=== PATIENT | male | born 1955 ===

== ENCOUNTER → 2019-08-15 13:55 | Outpatient (CLI) | payer BC, SELFPAY ==
--- NOTE | ~2019-08-15 | XR_ITS ---
XR chest 2V DATE: 08/15/2019 14:11 INDICATION: Congestion. Sinusitis. TECHNIQUE: PA and lateral views COMPARISON: None FINDINGS: Old posterior upper right rib healed fracture deformities are noted. There is degenerative spurring of the thoracic spine consistent with diffuse idiopathic skeletal hyperostosis. Normal heart size. There is mild aortic tortuosity. No pulmonary infiltrate or consolidation, pleural effusion or pulmonary vascular congestion or pneumo thorax is detected. No hilar or mediastinal enlargement. IMPRESSION: No active cardiopulmonary disease Reviewed, dictated and finalized at location B. [employer]
== END ==
PROVIDERS: PCP Physician Assistant; Visit Provider Physician Assistant
DX: J01.90 Acute sinusitis, unspecified (principal); R07.89 Other chest pain
CPT/HCPCS: 71046

== ENCOUNTER 2020-03-05 12:34 | Emergency (ER) | payer MEDICARE, SELFPAY ==
[2020-03-05 12:51] VITALS: BP 148/74; PULSE 85; RESP 18; TEMP 37; O2SAT 99
--- NOTE | 2020-03-05 12:57 | ED.EYEPROB ---
HPI - Eye Problem General Chief complaint: Eye Problems Stated complaint: fb in eyes Time Seen by Provider: 03/05/20 12:57 Source: patient and RN notes reviewed History of Present Illness HPI Narrative: Patient is a 65-year-old male who presents the urgent care with complaints of bilateral eye irritation. Patient has been using salve a cream on his bilateral cheeks due to machine neck gonsales . Patient states that his PCP put him on the medication and he stopped it approximately 9 to 10 days ago. Patient states the irritation started just after he stopped using the salve. Patient denies of any injury to the eyes. Denies of any change of vision. No other acute complaints. No acute distress noted. Patient read the plan of care. Related Data Home Medications Medication Instructions Recorded Confirmed aspirin 81 mg tablet,delayed 81 mg PO DAILY 07/12/19 03/05/20 release finasteride 5 mg tablet 5 mg PO DAILY 07/12/19 03/05/20 levetiracetam 500 mg tablet 1,500 mg PO DAILY tablet 09/27/19 03/05/20 finasteride mg 03/05/20 lisinopril 20 mg PO DAILY 03/05/20 03/05/20 lisinopril 20 mg PO DAILY 03/05/20 03/05/20 Allergies Allergy/AdvReac Type Severity Reaction Status Date / Time No Known Allergies Allergy Mild Verified 04/13/10 12:27 Review of Systems Review of Systems: Narrative: CONSTITUTIONAL: Denies fever, chills, or sweats. EYES: Reports of bilateral eye irritation ENT: Denies rhinorrhea, congestion, sore throat, or otalgia. CARDIOVASCULAR: Denies chest pain, palpitations, or edema. RESPIRATORY: Denies cough or dyspnea. GASTROINTESTINAL: Denies abdominal pain, nausea, vomiting, or diarrhea. GENITOURINARY: Denies dysuria or hematuria. SKIN: Denies rash or itching. MUSCULOSKELETAL: Denies back pain, joint pain, or myalgia. NEUROLOGIC: Denies headache, numbness, or weakness. All other systems reviewed are negative, except as documented in HPI. [facility] Past Medical History Medical History (Updated 03/05/20 @ 13:09 by MARY Castillo) Acute sinusitis BPH without obstruction/lower urinary tract symptoms Chest wall discomfort Enteritis Tension headache, chronic Family History Family History (Updated 12/14/18 @ 14:15 by DOCTOR UNKNOWN) Mother Family history of cardiovascular disease, Onset Age: 64 Father Family history of malignant neoplasm, Onset Age: 63 Sibling Family history of malignant neoplasm Comments At the time of my signature, I reviewed and agree with the nursing past medical, surgical, social, and family history. There is no relevant family history pertinent to the patient complaint. Exam Narrative: Exam Narrative: GENERAL: This is a well-nourished, well-developed patient, in no apparent distress. HEAD: normocephalic, atraumatic. EYES: PERRL. Sclera clear/white. Vision is grossly intact. Very mild irritation/erythema noted to bilateral lower eyelids without drainage, edema, matting EARS: External ears normal NOSE: External nose normal with no obvious nasal discharge, nares without redness, no rhinorrhea. THROAT: Mucous membranes moist NECK: Neck supple SKIN: warm, intact with no suspicious lesions or rash, good texture and turgor. NEURO: awake, alert, and oriented to person, place and time. There were no obvious focal neurologic abnormalities. EXTREMITIES: No clubbing, cyanosis, or edema. Course Vital Signs Vital signs: Vital Signs Temperature 98.6 F 03/05/20 12:51 Pulse Rate 85 03/05/20 12:51 Respiratory Rate 18 03/05/20 12:51 Blood Pressure 148/74 H 03/05/20 12:51 Pulse Oximetry 99 03/05/20 12:51 Temperature 98.6 F 03/05/20 12:51 Pulse Rate 85 03/05/20 12:51 Respiratory Rate 18 03/05/20 12:51 Blood Pressure 148/74 H 03/05/20 12:51 Pulse Oximetry 99 03/05/20 12:51 Reviewed?patient is informed that they may have pre-hypertension or hypertension based on a blood pressure reading in the department. I recomm
== END 2020-03-05 13:20 | disposition home or self-care (01) ==
PROVIDERS: Emergency Provider Nurse Practitioner Family
DX: H57.89 Other specified disorders of eye and adnexa (principal); N40.0 Benign prostatic hyperplasia without lower urinary tract symptoms
CPT/HCPCS: 99213; G0463

== ENCOUNTER 2022-07-21 12:45 | Emergency (ER) | payer MEDICARE, SELFPAY ==
[2022-07-21 12:52] VITALS: BP 171/90; PULSE 98; RESP 20; TEMP 36.7; O2SAT 99
[2022-07-21 12:58] VITALS: BP 171/90; PULSE 98; RESP 20; TEMP 36.7; O2SAT 99
--- NOTE | 2022-07-21 13:31 | ED.URI ---
HPI - URI/Sore Throat General Chief Complaint: Upper Respiratory Infection Stated Complaint: Chest Congestion Time Seen by Provider: 07/21/22 13:25 Source: patient, RN notes reviewed and old records reviewed Mode of arrival: ambulatory Limitations: no limitations History of Present Illness HPI Narrative: 67-year-old male who presents to [facility] care with complaints of feeling weakness and having lingering cough. Patient reports that 3 weeks ago he was ill for 2 weeks and last week he was better but not 'great'. He states that when he goes to the gym now he doesn't feel like he has his normal lung capacity. He reports that he continues to feel tired, has had no fever. Patient reports that he had had COVId vaccinations and 2 boosters and also flu shot and pneumonia shot. MD elicited complaint: cough and other (fatigue) Pertinent past history: sinusitis Related Data Home Medications Medication Instructions Recorded Confirmed aspirin 81 mg tablet,delayed 81 mg PO DAILY 07/12/19 03/05/20 release (Adult Low Dose Aspirin) finasteride 5 mg tablet 5 mg PO DAILY 07/12/19 03/05/20 levetiracetam 500 mg tablet 1,500 mg PO DAILY 09/27/19 03/05/20 lisinopril 20 mg tablet 20 mg PO DAILY 03/05/20 03/05/20 testosterone cypionate 200 mg/mL mg 07/21/22 intramuscular oil Allergies Allergy/AdvReac Type Severity Reaction Status Date / Time No Known Allergies Allergy Mild Verified 04/13/10 12:27 Review of Systems Review of Systems: CONSTITUTIONAL: Denies present malaise, chills, sweats, or fever. EYES: Denies visual changes, redness, or discharge. ENT: Reports no present rhinorrhea, congestion, sinus pain, otalgia and sore throat. CARDIOVASCULAR: Denies chest pain, palpitations, or edema. RESPIRATORY: Reports cough.?Reports some dyspnea with exertion GASTROINTESTINAL: Denies abdominal pain, nausea, vomiting, diarrhea SKIN: Denies rash or itching. MUSCULOSKELETAL: Denies myalgia. NEUROLOGIC: Denies headache. 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 symptoms Chest wall discomfort Enteritis GERD (gastroesophageal reflux disease) Hypertension Seizure disorder Tension headache, chronic Surgical History Surgical History (Updated 07/30/22 @ 19:17 by Meghann Ang NP) H/O shoulder surgery History of appendectomy Family History Family History Mother Family history of cardiovascular disease, Onset Age: 64 Father Family history of malignant neoplasm, Onset Age: 63 Sibling Family history of malignant neoplasm Social History Social History (Updated 07/30/22 @ 19:17 by Meghann Ang NP) Smoking status: Never smoker Alcohol intake: unknown Substance use: never Gender identity (if verbalized by the patient): Male Comments At time of signature, agree with nursing past medical, surgical, social and family history. There is no relevant family history pertinent to the presenting complaint Exam Narrative: GENERAL: Well-appearing, well-nourished, and in no acute distress. HEAD: Normocephalic EYES: PERRLA, conjunctivae clear ENT: Nares clear, turbinates edematous and erythematous, clear discharge. Mucous membranes moist. TM pearly valiente with dull light reflex bilaterally; no tragal tenderness. Oropharynx erythematous without lesions. Tonsils not enlarged and without exudate, no drooling, no hoarseness, no trismus, uvula midline. NECK: Supple. No lymphadenopathy CHEST: Clear to auscultation, breath sounds equal. No wheezing, rhonchi, rales, or stridor. No respiratory distress, speaks in full sentences.SAO2 99% on room air HEART: Regular rate and rhythm. No murmur heard. SKIN: Warm, dry, no rash. NEURO: Alert a
== END 2022-07-21 14:35 | disposition home or self-care (01) ==
PROVIDERS: Emergency Provider Registered Nurse; PCP Family Medicine
DX: R06.00 Dyspnea, unspecified (principal); N40.0 Benign prostatic hyperplasia without lower urinary tract symptoms
CPT/HCPCS: 87420; 87804; 99213; G0463

== ENCOUNTER 2022-12-28 10:24 | Emergency (ER) | payer MEDICARE, SELFPAY ==
[2022-12-28 10:28] VITALS: BP 143/79; PULSE 94; RESP 20; TEMP 36.5; O2SAT 100
--- NOTE | 2022-12-28 10:32 | ED.URI ---
HPI - URI/Sore Throat General Chief Complaint: Upper Respiratory Infection Stated Complaint: flu symptoms Time Seen by Provider: 12/28/22 10:58 Source: patient and RN notes reviewed Mode of arrival: ambulatory Limitations: no limitations History of Present Illness HPI Narrative: 67-year-old male presents with concern for feeling ill for 6 days. He reports headache, body aches, joint pain, nasal congestion. He reports nausea without vomiting. He reports some loose stools but not diarrhea. He reports he has an enlarged prostate. He reports some dysuria, suprapubic discomfort. MD elicited complaint: other (General malaise) Related Data Home Medications Medication Instructions Recorded Confirmed aspirin 81 mg tablet,delayed 81 mg PO DAILY 07/12/19 12/28/22 release (Adult Low Dose Aspirin) finasteride 5 mg tablet 5 mg PO DAILY 07/12/19 12/28/22 levetiracetam 500 mg tablet 1,500 mg PO DAILY 09/27/19 12/28/22 lisinopril 20 mg tablet 20 mg PO DAILY 03/05/20 12/28/22 Allergies Allergy/AdvReac Type Severity Reaction Status Date / Time No Known Allergies Allergy Mild Verified 12/28/22 10:33 Review of Systems Review of Systems: CONSTITUTIONAL: Denies malaise, chills, sweats EYES: Denies visual changes, redness, or discharge. ENT: Reports rhinorrhea, congestion. Denies sinus pain, otalgia and sore throat. CARDIOVASCULAR: Denies chest pain, palpitations, or edema. RESPIRATORY: Denies cough. Denies dyspnea. GASTROINTESTINAL: Reports suprapubic pain, nausea. Denies vomiting, diarrhea SKIN: Denies rash or itching. MUSCULOSKELETAL: Reports myalgia. NEUROLOGIC: Reports headache. 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 symptoms Chest wall discomfort Enteritis GERD (gastroesophageal reflux disease) Hypertension Seizure disorder Tension headache, chronic Surgical History Surgical History (Updated 07/30/22 @ 19:17 by Meghann Ang NP) H/O shoulder surgery History of appendectomy Family History Family History Mother Family history of cardiovascular disease, Onset Age: 64 Father Family history of malignant neoplasm, Onset Age: 63 Sibling Family history of malignant neoplasm Social History Social History (Updated 07/30/22 @ 19:17 by Meghann Ang NP) Smoking status: Never smoker Alcohol intake: unknown Substance use: never Gender identity (if verbalized by the patient): Male Comments At time of signature, agree with nursing past medical, surgical, social and family history. There is no relevant family history pertinent to the presenting complaint Exam Narrative: GENERAL: Well-appearing, well-nourished, and in no acute distress. HEAD: Normocephalic EYES: PERRLA, conjunctivae clear ENT: Nares clear, clear discharge. Mucous membranes moist. TM pearly valiente with sharp light reflex bilaterally; no tragal tenderness. Oropharynx not erythematous without lesions. Tonsils not enlarged and without exudate, no drooling, no hoarseness, no trismus, uvula midline. NECK: Supple. No lymphadenopathy CHEST: Clear to auscultation, breath sounds equal. No wheezing, rhonchi, rales, or stridor. No respiratory distress, speaks in full sentences. ABD: Mild suprapubic discomfort HEART: Regular rate and rhythm. No murmur heard. SKIN: Warm, dry, no rash. NEURO: Alert and oriented x3. PSYCH: Normal mood and affect Course Course Emergency Course: Discussed with patient his negative COVID and flu test. Discussed that due to his symptoms I cannot rule out prostatitis, he does have a mild hematuria. I will treat the patient prophylactically for prostatitis and instructed follow-up with his primary care provider. Patient is aware
[2022-12-28 10:35] VITALS: BP 143/79; PULSE 94; RESP 20; TEMP 36.5; O2SAT 100
== END 2022-12-28 11:20 | disposition home or self-care (01) ==
PROVIDERS: Emergency Provider Nurse Practitioner; PCP Family Medicine
DX: R10.30 Lower abdominal pain, unspecified (principal); R69 Illness, unspecified; Z20.822 Contact with and (suspected) exposure to COVID-19; N40.0 Benign prostatic hyperplasia without lower urinary tract symptoms; K21.9 Gastro-esophageal reflux disease without esophagitis; I10 Essential (primary) hypertension; G40.909 Epilepsy, unspecified, not intractable, without status epilepticus; Z79.82 Long term (current) use of aspirin
CPT/HCPCS: 81003; 87426; 99213; C9803; G0463

== ENCOUNTER 2024-05-05 14:08 | Emergency (ER) | payer MEDICARE, SELFPAY ==
[2024-05-05 14:29] VITALS: BP 154/77; PULSE 72; RESP 18; TEMP 36.6; O2SAT 99
--- NOTE | 2024-05-05 15:05 | ED.URI ---
HPI - URI/Sore Throat General Chief Complaint: Upper Respiratory Infection Stated Complaint: Sore Throat Time Seen by Provider: 05/05/24 14:48 Source: patient and RN notes reviewed Mode of arrival: ambulatory Limitations: no limitations History of Present Illness HPI Narrative: Patient presents today with a 3 week history of a sinus discomfort, sore throat, headache, fatigue. Denies cough, shortness of breath, fever. Patient was seen on 04/24/2024 and prescribed a course of Augmentin. States he finished this but continues to have persistent symptoms. He also takes Tylenol and uses Flonase which he does find helpful. He has tried to follow-up with his PCP but has been unable to make an appointment. Related Data Home Medications Medication Instructions Recorded Confirmed aspirin 81 mg tablet,delayed 81 mg PO DAILY 07/12/19 05/05/24 release (Adult Low Dose Aspirin) finasteride 5 mg tablet 5 mg PO DAILY 07/12/19 05/05/24 levetiracetam 500 mg tablet 1,500 mg PO DAILY 09/27/19 05/05/24 lisinopril 20 mg tablet 20 mg PO DAILY 03/05/20 05/05/24 Allergies Allergy/AdvReac Type Severity Reaction Status Date / Time No Known Allergies Allergy Mild Verified 05/05/24 14:14 Review of Systems Review of Systems: CONSTITUTIONAL: Denies body aches, fever, chills, or sweats.+ fatigue EYES: Denies visual changes, redness, or discharge. ENT: Denies rhinorrhea, congestion,or otalgia.+ sore throat, sinus pain CARDIOVASCULAR: Denies chest pain, palpitations, or edema. RESPIRATORY: Denies cough or dyspnea. GASTROINTESTINAL: Denies abdominal pain, nausea, vomiting, or diarrhea. GENITOURINARY: Denies dysuria or hematuria. SKIN: Denies rash, itching, or wounds. MUSCULOSKELETAL: Denies back pain, joint pain, or myalgia. NEUROLOGIC: Denies numbness, tingling, or weakness.+ headache PSYCH: Denies depression or anxiety. [facility] Past Medical History Medical History Acute sinusitis BPH without obstruction/lower urinary tract symptoms Chest wall discomfort Enteritis GERD (gastroesophageal reflux disease) Hypertension Seizure disorder Tension headache, chronic Surgical History Surgical History H/O shoulder surgery History of appendectomy Family History Family History Mother Family history of cardiovascular disease, Onset Age: 64 Father Family history of malignant neoplasm, Onset Age: 63 Sibling Family history of malignant neoplasm Social History Social History Smoking status: Never smoker Alcohol intake: unknown Substance use: never Gender identity (if verbalized by the patient): Male Comments At time of signature, I have reviewed and agree with nursing past medical, surgical, social and family history unless otherwise noted. Please see nursing chart for further information. There is no relevant family history pertinent to the presenting complaint Exam Narrative: GENERAL: Well-appearing, well-nourished, and in no acute distress. HEAD: Normocephalic, atraumatic. EYES: EOMI. No redness or drainage. Conjunctivae normal. ENT: Mucous membranes pink and moist. Nares clear. Turbinates normal bilaterally. No frontal or maxillary sinus tenderness. No rhinorrhea. TMs normal bilaterally. Throat normal with small amount of postnasal drainage. Uvula midline. NECK: Normal AROM. Supple. No lymphadenopathy. CHEST: No respiratory distress. Clear to auscultation. HEART: Regular rate and rhythm. No murmur appreciated. EXTREMITIES: Normal range of motion. No edema. SKIN: Warm, dry, no rash. Capillary refill normal. Normal skin turgor. NEURO: No focal deficits. Alert and oriented x3. Gait steady. PSYCH: Normal affect. No signs of depression or anxiety
== END 2024-05-05 15:10 | disposition home or self-care (01) ==
PROVIDERS: Emergency Provider Nurse Practitioner
DX: R09.82 Postnasal drip (principal); R51.9 Headache, unspecified; N40.1 Benign prostatic hyperplasia with lower urinary tract symptoms; K21.9 Gastro-esophageal reflux disease without esophagitis; I10 Essential (primary) hypertension; G40.909 Epilepsy, unspecified, not intractable, without status epilepticus; Z79.82 Long term (current) use of aspirin
CPT/HCPCS: 99213; G0463

== ENCOUNTER 2024-12-21 14:16 | Outpatient (CLI) | payer MEDICARE, SELFPAY ==
--- NOTE | ~2024-12-21 | CT_ITS ---
Non-contrast CT scan of the Abdomen and Pelvis Clinical indication: Prostatitis Technique: 2.5 mm axial scans were obtained through the abdomen and pelvis without intravenous or or al contrast. Dose reduction technique was used on this scan by utilizing automated exposure control a nd iterative reconstruction technique. The dose-length product (DLP) was 749.30 mGy-cm. Findings: Images through the lung bases reveal no abnormalities. There is no evidence of renal or ureteral calculi. The kidneys and the ureters are nondilated. Diffuse hepatic steatosis noted. The spleen, pancreas, gallbladder, and adrenals appear normal. There are atherosclerotic calcifications of the aorta. . There is no evidence of bowel obstruction. Images through the pelvis were performed. There is no evidence of ascites or lymphadenopathy. Urinary bladder unremarkable. Prostate gland and seminal vesicles are unremarkable. Bilateral L5 pars interarticularis defects are present, with minimal grade 1 anterolisthesis of L5 ov er S1. Impression: No abnormality of the prostate gland identified. Diffuse hepatic steatosis. Reviewed, dictated and finalized at [facility]. Impression: No abnormality of the prostate gland identified. Diffuse hepatic steatosis.
--- OUTSIDE RECORDS SUMMARY | 2024-12-21 14:23 | XMS_ITS | Encounter Summary ---
Author Organization [facility] Home Care Servic es Address [address] [place] [address] Phone Care Team Providers Care Information Writer Name Role Phone Brie Beach MD Primary Care Provider + Cheyenne Burk Unavailable [phone] Jermaine Cormier MD Unavailable [phone] Zeke Steve NP Unavailable [phone] Eladio Villasenor MD Unavailable [phone] Sumit Butt MD Unavailable [phone] Jacek Madrigal MD Primary Care Provider Felicity Parmar MD Primary Care Provide r Encounter Details Date Type Department Care Team (Late st Contact Info) Description 04/22/2023 Telephone [facility] Home Care Services [address] [place] [address] Altagracia Owens RN Social History Tobacco Use Types Packs/Day Years Used Date Smoking Tobacco: Never Smokeless Tobacco: Never AUDIT-C Answer Date Recorded Q1: How often do you have a drink containing alcohol? Never 04/19/2023 Q2: How many drinks containi ng alcohol do you have on a typical day when you are drinking? Patient does not drink Frequency of Binge Drinking Not on file 04/09 Personal Safety Answer Date Recorded Have you ever been in or are you currently in a harmful physical or emotional relationship or is someone making you feel afraid or unsafe? Denies 04/19/2023 Sex and Gender Information Value Date Recorded Sex Assigned at Not on file Legal Sex Male 7:20 PM [employer] Gender Identity Not on file Sexual Orientation Not on file documented as of this encounter Plan of Treatment Not on file documented as of this encounter Visit Diagnoses Not on filedocumented in this encounter Additional Health Concerns Infection Onset Date Last Indicated Resolved Time COVID: Suspected 04/25/2024 04/25/2024 04/25/2024 1:24 PM CDT COVID: Suspected 11/17/2024 11/17/2024 11/17/2024 9:01 PM CDT documented as of this encounter Care Teams Information Writer Relationship Specialty Start Date End Date Brie Beach MD [address] [place] [address] [address] [place] [address] PCP - General Family Medicine 10/17/20 03/22/24 Jacek Madrigal MD [address] [facility] [address] [place] [address] PCP - General Family Medicine 03/23/24 11/16/24 Felicity Parmar MD [address] [place] [address] [address] [place] [address] PCP - General Family Medicine 11/17/24 Cheyenne Burk PA [address] [place] [address] [address] [place] [address] Orthopedic Surgery 04/19/23 Jermaine Cormier MD [address] [place] [address] [address] [facility] [address] [place] [address] Surgeon Orthopedic Surgery 04/21/23 Zeke Steve NP [address] [place] [address] [address] [place] [address] Nurse Practitioner Nurse Practitioner 04/22/23 Eladio Villasenor MD [address] [place] [address] [address] [place] [address] Consulting Physician Neurology 03/23/24 Sumit Butt MD [address] [facility] [address] [place] [address] Consulting Physician Urology 03/23/24 documented as of this encounter
--- OUTSIDE RECORDS SUMMARY | 2024-12-21 14:23 | XMS_ITS | Clinical Summary ---
Author Organization [facility] Medical Office Building [address] Address [address] [place] [address] Care Team Providers Care Clinical Dietitian Name Role Phone Cheyenne Burk Unavailable Jermaine Cormier MD Unavailable [phone] Zeke Steve NP Unavailable [phone] Eladio Villasenor MD Unavailable [phone] Sumit Butt MD Unavailable [phone] Felicity Parmar MD Primary Care Provide r Allergies Active Allergy Reactions Criticality Noted Date Comments Ciprofloxacin Swelling,Dizziness,Nausea & Vomiting High 04/13/2023 Medications finasteride (PROSCAR) 5 mg tablet Take 1 tablet (5 mg total) by mouth daily 1 Active aspirin 81 mg enteric coated tablet Take 1 tablet (81 mg total) by mouth daily Active cyclobenzaprine (FLEXERIL) 10 mg tablet Take 1 tablet (10 mg total) by mouth 3 (three) times a day as needed for muscle spasms Active albuterol HFA (PROVENTIL HFA,VENTOLIN HFA,PROAIR HFA) 90 mcg/actuation inhaler Inhale 2 puffs every 6 (six) hours as needed for wheezing 4 Active levETIRAcetam (KEPPRA) 500 mg tabletIndications :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) TAKE 1.5 TABLETS (750 MG TOTAL) BY MOUTH 2 (TWO) TIMES A DAY 270 tablet 3 4 Active lisinopriL (PRINIVIL,ZESTRIL ) 40 mg tabletIndications :Essential hypertension Take 1 tablet (40 mg total) by mouth daily 90 tablet 1 5 11/18/19 26 Active amitriptyline (ELAVIL) 10 mg tabletIndications :Other insomnia Take 1 tablet (10 mg total) by mouth nightly 90 tablet 1 5 Active Active Problems Problem Noted Date Diagnosed Date Sore throat 11/17/2024 Assessment & Plan (11/17/2024 11:45 AM CDT): New concern Not at goal Likely viral pharyngitis Will do a throat culture and pcr for covid flu and rsv No signs of bacterial infection Continue supportive care including antihistamines, decongestants, Mucinex and Tylenol and Ibuprofen for pain. F/u pending above results Fatigue 11/17/2024 Assessment & Plan (11/17/2024 11:47 AM CDT): New concern Likely a viral syndrome Cbc b12 iron panel ferritin esr crp tsh today See sore throat for a/p as well F/u at next appt Encounter to establish care 11/16/2024 Assessment & Plan (11/16/2024 12:48 PM CDT): Medical history reviewed and discussed S/P arthroscopy of right shoulder 09/26/2024 Assessment & Plan (09/26/2024 3:07 PM VP INFORMAT[facility]): - s/p right sholder arthroscopy 04/2023 for the following Complete tear of right rotator cuff, unspecified whether traumatic Arthritis of right acromioclavicular joint Biceps tendinitis on right Impingement syndrome of right shoulder Preventative health care 09/26/2024 Assessment & Plan (09/26/2024 3:13 PM VP INFORMATICS): - New or chronic worsening conditions: no significant acute issues on this visit - Mental health: no significant psychiatric/mental health conditions affecting her day to day functioning - Dental health: Recommend regular dental care and cleaning. Discussed importance of regular tooth brushing, flossing, and dental visits. - Nutrition: Recommend moderation in sodium/caffeine intake, saturated fat and cholesterol, caloric balance, sufficient intake of fresh fruits, vegetables - Exercise: Recommend to exercise at least 30 minutes moderate to vigorous exercise most days of the week. (minimum 150 minutes weekly) - Immunizations: Age and sex appropriate immunizations reviewed and offered - Prostate cancer screening: Up to date - Colon cancer screening: Up to date - Lung cancer screening: not indicated No results found for: PSA Benign prostatic hyperplasia with lower urinary tract symptoms 03/23/2024 Overview (04/25/2024): Managed by Urology - [facility] Dr. Butt Assessment & Plan (11/17/2024 11:45 AM CDT): Continue following with urology Assessment & Plan (09/26/2024 3:06 PM [facility]): - chronic condition, stable status - symptoms were trouble urinating, straining - follows with Urology - Dr. Butt at [facility], followed annually - currently on Finasteride 5 mg daily - in past was on Flomax caused retrograde ejaculation which was painful to him - PSA being done by his urologist annually - continue current management per Urology Assessment & Plan (03/23/2024 2:40 PM CDT): - chronic condition, stable status - symptoms were trouble urinating, straining - follows with Urology - Dr. Butt at [facility], followed annually - currently on Finasteride 5 mg daily - in past was on Flomax caused retrograde ejaculation which was painful to him - continue current management per Urology - PSA being done by his urologist annually Class 1 obesity due to exces s calories with serious comorbidity and body mass index (BMI) of 33.0 to 33.9 in adult 03/23/2024 Assessment & Plan (11/17/2024 11:48 AM CDT): He was counseled on the importance of maintaining a healthy weight and the risks of obesity. Weight loss recommended. Encourage 150min/ week of exercise Encourage 1500 calories in a day for weight loss Assessment & Plan (09/26/2024 2:57 PM VP INFORMAT[facility]): Wt Readings from Last 3 Encounters: 09/26/24 100.7 kg (222 lb) 04/25/24 99.3 kg (218 lb 14.4 oz) 03/23/24 99.2 kg (218 lb 9.6 oz) Body mass index is 48.03 kg/m . - chronic condition, not at goal, worse, small weight gain noted - goal BMI <30 - BMI Follow-up includes: nutrition counseling, exercise counseling and education provided - Recommend to exercise at least 30 minutes moderate to vigorous exercise most days of the week. (minimum 150 minutes weekly) - Co-morbidities - hypertension Assessment & Plan (03/23/2024 2:28 PM CDT): Wt Readings from Last 3 Encounters: 03/23/24 99.2 kg (218 lb 9.6 oz) 03/03/24 95.7 kg (211 lb) 01/04/24 98.3 kg (216 lb 12.8 oz) Body mass index is 47.29 kg/m . - chronic condition, not at goal - BMI Follow-up includes: nutrition counseling, exercise counseling and education provided - Recommend to exercise at least 30 minutes moderate to vigorous exercise most days of the week. 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 Assessment & Plan (09/26/2024 2:58 PM [facility] [employer]): - chronic condition, stable status - hx of anxiety but under good control - currently takes Amitriptyline 10 mg nightly for sleep The current medical regimen is effective; continue present plan and medications. Assessment & Plan (03/23/2024 2:33 PM CDT): - chronic condition, stable status - hx of anxiety but under good control - currently takes Amitriptyline 10 mg nightly for sleep - continue current management Nonintractable epilepsy with complex partial sei zures 11/08/2020 Overview (09/26/2024): Following with Neurology Assessment & Plan (11/17/2024 11:45 AM CDT): - chronic condition, stable status - had petitmal seizure x3-4 in 1999 and then partial onset seizure afterward - sees Dr. Villasenor (neurologist) for seizure disorder, on Levitiracetam 500 mg TID The current medical regimen is effective; continue present plan and medications. - continue current management per neurology Assessment & Plan (09/26/2024 2:57 PM VP INFORMATICS): - chronic condition, stable status - had petitmal seizure x3-4 in 1999 and then partial onset seizure afterward - sees Dr. Villasenor (neurologist) for seizure disorder, on Levitiracetam 500 mg TID The current medical regimen is effective; continue present plan and medications. - continue current management per neurology Assessment & Plan (03/24/2024 5:26 AM CDT): - chronic condition, stable status - had petitmal seizure x3-4 in 1999 and then partial onset seizure afterward - sees Dr. Villasenor (neurologist) for seizure disorder, on Levitiracetam 500 mg TID - continue current management per neurology Essential hypertension 03/11/2020 Assessment & Plan (11/17/2024 11:01 AM CDT): Blood Pressure Management BP Readings from Last 3 Encounters: 11/17/24 130/82 11/15/24 140/80 09/26/24 124/74 Chronic condition Status - is adequately controlled. Current medications are: Lisinopril 40 mg daily Patient is compliant with medications. Patient denies any side effects or adverse side effects from the medication/s. Follow a low salt diet Monitor blood pressure regularly at home The current medical regimen is effective; continue present plan and medications. The 10-year ASCVD risk score (Rohit LUNA, et al., 2019) is: 21.9% Values used to calculate the score: Age: 69 years Sex: Male Is Non- : No Diabetic: No Tobacco smoker: No Systolic Blood Pressure: 130 mmHg Is BP treated: Yes HDL Cholesterol: 37 mg/dL Total Cholesterol: 184 mg/dL Lab Results Component Value Date LDLCALC 83 09/26/2024 Lab Results Component Value Date GLUCOSE 99 09/26/2024 CALCIUM 9.5 09/26/2024 SODIUM 133 (L) 09/26/2024 POTASSIUM 4.6 09/26/2024 CO2 28 09/26/2024 CHLORIDE 96 (L) 09/26/2024 BUNSER 13 09/26/2024 CREATININE 1.22 09/26/2024 Assessment & Plan (09/26/2024 2:57 PM VP INFORMAT[facility]): Blood Pressure Management BP Readings from Last 3 Encounters: 09/26/24 124/74 04/25/24 140/80 03/23/24 120/60 Chronic condition Status - is adequately controlled. Current medications are: Lisinopril 40 mg daily Patient is compliant with medications. Patient denies any side effects or adverse side effects from the medication/s. Follow a low salt diet Monitor blood pressure regularly at home The current medical regimen is effective; continue present plan and medications. The 10-year ASCVD risk score (Rohit LUNA, et al., 2019) is: 19.2% Values used to calculate the score: Age: 69 years Sex: Male Is Non- : No Diabetic: No Tobacco smoker: No Systolic Blood Pressure: 124 mmHg Is BP treated: Yes HDL Cholesterol: 40 mg/dL Total Cholesterol: 176 mg/dL Lab Results Component Value Date LDLCALC 104 03/23/2024 Lab Results Component Value Date GLUCOSE 97 03/23/2024 CALCIUM 9.0 03/23/2024 SODIUM 132 (L) 03/23/2024 POTASSIUM 4.7 03/23/2024 CO2 26 03/23/2024 CHLORIDE 95 (L) 03/23/2024 BUNSER 13 03/23/2024 CREATININE 0.93 03/23/2024 Assessment & Plan (03/23/2024 2:18 PM CDT): Blood Pressure Management BP Readings from Last 3 Encounters: 03/23/24 120/60 03/03/24 144/87 01/04/24 112/67 Chronic condition Status - is adequately controlled. Current medications are: Lisinopril 40 mg daily Patient is compliant with medications. Patient denies any side effects or adverse side effects from the medication/s. Follow a low salt diet Monitor blood pressure regularly at home Continue current management unless change made above The ASCVD Risk score (Rohit LUNA, et al., 2019) failed to calculate for the following reasons: Cannot find a previous HDL lab Cannot find a previous total cholesterol lab No results found for: LDLCALC No results found for: GLUCOSE , CALCIUM , SODIUM , POTASSIUM , CO2 , CHLORIDE , BUNSER , CREATININE Resolved Problems Problem Noted Date Diagnosed Date Resolved Date Complete tear of right rotator cuff 04/01/2023 09/26/2024 Arthritis of right acromioclavicular joint 04/01/2023 09/26/2024 Biceps tendinitis on right 04/01/2023 0 03/24/2024 Impingement syndrome of right shoulder 04/01/2023 09/26/2024 Upper respiratory infection 02/15/2023 03/23/2024 Acute sinusitis 02/12/2023 03/23/2024 Pain of toe of left foot 01/20/2023 Pain in throat 11/04/2022 03/23/2024 Gastroenteritis 11/03/2022 03/23/2024 Pain in joint of right shoulder 11/03/2022 09/26/2024 Seizure disorder 03/11/2020 03/24/2024 Encounters Date Type Department Care Team Description 11/20/2024 Results Follow-Up [facility] Primary Care at [address] [place] [phone] Felicity Parmar MD 11/18/2024 Results Follow-Up [facility] at [address] [place] [phone] Lalita Lopez NP 11/17/2024 7:40 PM CDT - 11/17/2024 11:59 PM CDT Hospital Encounter [address] [address] Acute cough Discharge Disposition: Discharge to home or self care 11/17/2024 12:16 PM CDT - 11/17/2024 11:59 PM CDT Hospital Encounter [address] [address] Upper respiratory tract infection, unspecified type Discharge Disposition: Discharge to home or self care 11/17/2024 11:00 AM CDT Office Visit [facility] Primary Care at [address] [phone] Felicity Parmar MD Encounter to establish care (Primary Dx); Essential hypertension; Class 1 obesity due to excess calories with serious comorbidity and body mass index (BMI) of 33.0 to 33.9 in adult; Other insomnia; Primary insomnia; Acute cough; Sore throat; Benign prostatic hyperplasia with lower urinary tract symptoms, symptom details unspecified; 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); Fatigue, unspecified type 11/17/2024 Orders Only [facility] Primary Care at [address] [phone] Felicity Parmar MD Encounter for long-term (current) use of medications (Primary Dx); Fatigue, unspecified type 11/15/2024 2:45 PM CDT Office Visit [facility] at [address] [place] [phone] Tayla Mcpherson NP Upper respiratory tract infection, unspecified type (Primary Dx); Sore throat 11/15/2024 Nurse Triage [facility] Primary Care at [address] [phone] Jacek Madrigal MD 09/27/2024 Results Follow-Up [facility] Primary Care at [address] [place] [phone] Jacek Madrigal MD 09/26/2024 3:35 PM [facility] Lab [address] [phone] Morbid obesity with BMI of 45.0-49.9, adult (HCC); Essential hypertension 09/26/2024 3:00 PM [facility] Office Visit [facility] Primary Care at [address] [place] [phone] Jacek Madrigal MD Preventative health care (Primary Dx); Essential hypertension; 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); Morbid obesity with BMI of 45.0-49.9, adult (HCC); Bilateral hearing loss, unspecified hearing loss type; Primary insomnia; Benign prostatic hyperplasia with lower urinary tract symptoms, symptom details unspecified; S/P arthroscopy of right shoulder from Last 3 Months Immunizations Immunization Administration Dates Next Due DTaP 10/02/2015 Influenza, Quad, Adjuvantate d, Intramuscular 04/16/2021 Influenza, Quadrivalent, Hig h Dose, Preservative Free, Intrr 06/08/2023,05/06/2022 Influenza, Quadrivalent, Spl it, Intramuscular 04/23/2021 Influenza, Quadrivalent, Spl it, Preservative Free, Intramuscular 05/21/2017,06/08/2016 Influenza, Unspecified 05/28/2024(Deferr ed: Patient Refused),03/23/2024(Deferred: Patient Refused),06/08/2023,05/06/2022, 021 Moderna SARS-CoV-2 Monovalen t Vaccination (12+ YRS) 11/24/2021 Moderna Sars-cov-2 Bivalent Vaccine 50 Mcg/0.5 mL (12+ YRS)-Blue/Calle 06/11/2022 Pfizer SARS-CoV-2 Monovalent Vaccination (12+ Yrs) PURPLE 11/24/2021 Pneumococcal Conjugate Pcv20 02/27/2022 Pneumococcal Polysaccharide PPV23 10/02/2020 Tdap 10/02/2015 ZOSTER Recombinant 05/02/2023,02/03/2023 Surgical History Surgery Date Site/Laterality Comments [place] APPENDECTOMY Appendectomy - (Added by TW Conv) SHOULDER ARTHROSCOPY W/ ROTA TOR CUFF REPAIR Left Medical History Medical History Date Comments Personal history of other di seases of male genital organs History of prostatitis - (Ad ded by TW Conv) Personal history of other di seases of the circulatory system History of hypertension - (A dded by TW Conv) Anxiety disorder Anxiety - (Adde d by TW Conv) Personal history of other me ntal and behavioral disorders History of depression - (Add ed by TW Conv) Personal history of other di seases of male genital organs History of epididymitis - (A dded by TW Conv) Hypertension Seizures (HCC) Family History Medical History Relation Name Comments Lung cancer Father Heart disease Mother Relation Name Status Comments Father Mother Social History Tobacco Use Types Packs/Day Years Used Date Smoking Tobacco: Never Passive Smoke Exposure: Never Smokeless Tobacco: Never Tobacco Cessation:Counseling Given: Not Answered OASIS D0700: Social Isolation Answer Da te Recorded Frequency of experiencing loneliness or isolatio n Never 05/25/2023 OASIS A1250: Transportation Answer Date Recorded Lack of Transportation (Medical) No 05/25/2023 Lack of Transportation (Non-Medical) No 05/25/2023 Patient Unable or Declines to Respond No 05/25/2023 OASIS B1300: Health Literacy Answer Josep e Recorded Frequency of needing help to read materials from doctor or pharmacy Never 05/25/2023 AUDIT-C Answer Date Recorded Q1: How often do you have a drink containing alcohol? Never 09/26/2024 Q2: How many drinks containi ng alcohol do you have on a typical day when you are drinking? Patient does not drink Q3: How often do you have si x or more drinks on one occasion? Never 09/26/2024 PHQ-2 Answer Date Recorded PHQ-2 Total Score (If total score is 3 or more points, staff should administer the PHQ-9) 0 11/17/2024 Personal Safety Answer Date Recorded Have you ever been in or are you currently in a harmful physical or emotional relationship or is someone making you feel afraid or unsafe? Denies 04/19/2023 Sex and Gender Information Value Date Recorded Sex Assigned at Not on file Legal Sex Male 7:20 PM [facility] Gender Identity Not on file Sexual Orientation Not on file Obstetrics History Last Filed Vital Signs Vital Sign Reading Time Taken Comments Blood Pressure 130/82 11/17/2024 10:45 AM CDT Pulse 85 11/17/2024 10:45 AM CDT Temperature 36.8 C (98.3 F) 11/17/2024 10:45 AM CDT Respiratory Rate 18 11/17/2024 10:45 AM CDT Oxygen Saturation 96% 11/17/2024 10:45 AM CDT Inhaled Oxygen Concentration - - Weight 101.8 kg (224 lb 8 oz) 11/17/2024 10:45 A M CDT Height 175.3 cm (5' 9 ) 11/17/2024 10:45 AM CDT Body Mass Index 33.15 11/17/2024 10:45 AM CDT Plan of Treatment Health Maintenance Due Date Last Done Comments Prostate Cancer Screening-PSA 1955 Colon Cancer Screening-Colonoscopy 12/24/2024 12/24/2014 Influenza Vaccine (Season Ended) 2025 06/08/2023, 06/08/2023, 05/06/2022, Additional history exists Well Visit 65+ 09/26/2025 09/26/2024 DTaP/Tdap/Td Vaccine (3 - Td or Tdap) 10/02/2025 10/02/2015, 10/02/2015 Covid-19 Vaccine ( season) 2025 06/11/2022, 06/11/2022, 11/24/2021, Additional history exists Postponed from 04/09/2024 (Patient declined, but will receive in the future) Depression Screening 11/17/2025 11/17/2024, 09/26/2024, 04/25/2024, Additional history exists Fall Risk Assessment 11/17/2025 11/17/2024, 09/26/2024, 04/25/2024, Additional history exists Colon Cancer Screening-CT Colonography Discontinued 12/24/2014 Colon Cancer Screening-DNA Stool Discontinued 12/24/2014 Colon Cancer Screening-FIT Discontinued 12/24/2014 Colon Cancer Screening-Sigmoidoscopy Discontinued 12/24/2014 Pneumococcal vaccine 65+ Completed 02/27/2022, 09/10 Zoster Vaccine Completed 05/02/2023, 02/03/2023 Hepatitis B Screening Completed 03/23/2024 Hepatitis C Screening Completed 03/23/2024 Medical Devices Implanted Type Area Grip Boss Device Identifier Shelf Expiration Date Model / Serial / Lot [employer] [place] Suture 3.9mm Swivelock Biocomposite 17.9mm Ar-[id number] - [id number] Implanted:Qty: 1 on 04/19/2023 by Jermaine Cormier MD at [facility] Right: Shoulder [employer] 11/06/2026 AR-2326BC C / / [id number] [employer] Swivelock C 4.75mm 19.1mm Close Eyelet Tape Loop Vent [place] Ar-[id number] - [id number] Implanted:Qty: 1 on 04/19/2023 by Jermaine Cormier MD at [facility] Right: Shoulder [employer] [id number] 01/06/[address] AR-[address] / / [id number] [employer] Swivelock C 4.75mm 19.1mm Closed Eyelet Vent [place] Suture Ar-[id number] - [id number] Implanted:Qty: 1 on 04/19/2023 by Jermaine Cormier MD at [facility] Right: Shoulder [employer] [id number] 02/05/2027 AR-2324BC CTT / / [id number] [employer] Swivelock C 4.75mm 19.1mm Closed Eyelet Vent [place] Suture Ar-2324bcc - [id number] Implanted:Qty: 1 on 04/19/2023 by Jermaine Cormier MD at [facility] Right: Shoulder [employer] 01/06/2027 AR-2324BC C / / [id number] [employer] Swivelock C 4.75mm 19.1mm Closed Eyelet Vent [place] Suture Ar-2324bcc - [id number] Implanted:Qty: 1 on 04/19/2023 by Jermaine Cormier MD at [facility] Right: Shoulder [employer] 01/06/2027 AR-2324BC C / / [id number] [employer] Fiberlink Arthrex Suturetape 1.3mm Tape Suture Nonabsorbable Ar-7535 - [id number] Implanted:Qty: 1 on 04/19/2023 by Jermaine Cormier MD at [facility] Right: Shoulder [employer] 01/06/2027 [id number] / / Procedures Procedure Name Priority Date/Time Associated Diagnosis Comments XR CHEST PA LATERAL 2 VIEWS Schedule ZACHARIAH, Read ZACHARIAH (Appt Today, Awaiting Results) 11/17/2024 12:21 PM CDT Upper respiratory tract infection, unspecified type THROAT CULTURE Routine 11/17/2024 12:00 PM CDT Acute cough INFLUENZA A/B, RSV, AND COVID-19 PCR Routine 11/17/2024 12:00 PM CDT Acute cough EGFR Routine 09/26/2024 3:39 PM [facility] Essential hypertension DIFFERENTIAL AUTO Routine 09/26/2024 3:3 9 PM [facility] [employer] Essential hypertension CBC WITH AUTO DIFFERENTIAL Routine 09/26/2024 3:39 PM [facility] [employer] Essential hypertension COMPREHENSIVE METABOLIC PANEL Routine 09/26/2024 3:39 PM [facility] [employer] Essential hypertension LIPID PANEL Routine 09/26/2024 3:39 PM [facility] [employer] Morbid obesity with BMI of 45.0-49.9, adult (HCC) THYROID FUNCTION CASCADE Routine 09/26/2024 3:39 PM [facility] [employer] Morbid obesity with BMI of 45.0-49.9, adult (HCC) HEPATITIS C ANTIBODY Routine 03/23/2024 3:55 PM CDT Encounter for hepatitis C screening test for low risk patient COLONOSCOPY 12/24/2014 12:00 AM CDT from Last 3 Months or Most Recently Relevant to Health Maintenance Results * XR Chest PA Lateral 2 Views (11/17/2024 12:21 PM CDT) Anatomical Region Laterality Modality Body, Chest N/A Computed Radiogr aphy 11/17/2024 10:4 8 PM CDT Narrative 11/17/2024 10:52 PM CDT EXAM DESCRIPTION: XR CHEST PA LATERAL 2 VIEWS REASON FOR STUDY: pneumonia Pt stated they have felt weak for 1 week Hx of HTN-medicated No other chest complaints TECHNIQUE: 2 radiographic view(s) of the chest. COMPARISON: None FINDINGS: LUNGS: Minor chronic lung changes are noted. No consolidation, effusion or other acute process is seen. HEART/MEDIASTINUM: Cardiac silhouette normal in size. Mediastinal and hilar contours appear normal. LINES/TUBES: None. BONES: No acute osseous abnormality. IMPRESSION: No acute cardiopulmonary abnormality. THIS IS AN ELECTRONICALLY VERIFIED FINAL REPORT 11/17/2024 10:52 PM - Electronically signed by Wm HELLER: ARRON Report ID: [id number] Reading Location: [id number] Procedure Note Wm Claire MD - 11/18/2024 EXAM DESCRIPTION: XR CHEST PA LATERAL 2 VIEWS REASON FOR STUDY: pneumonia Pt stated they have felt weak for 1 week Hx of HTN-medicated No other chest complaints TECHNIQUE: 2 radiographic view(s) of the chest. COMPARISON: None FINDINGS: LUNGS: Minor chronic lung changes are noted. No consolidation, effusionor other acute process is seen. HEART/MEDIASTINUM: Cardiac silhouette normal in size. Mediastinal andhilar contours appear normal. LINES/TUBES: None. BONES: No acute osseous abnormality. IMPRESSION: No acute cardiopulmonary abnormality. THIS IS AN ELECTRONICALLY VERIFIED FINAL REPORT 11/17/2024 10:52 PM - Electronically signed by Wm HELLER: ARRON Report ID: [id number] Reading Location: [id number] us Tayla Mcpherson [employer] IMG XR PROCEDURES Fin al Result * Influenza A/B, RSV, and COVID-19 PCR Nasopharyngeal (11/17/2024 12:00 PM CDT) COVID-19 RNA Negative Negative Influenza A RNA Negative Negative [facility] [facility] Influ[facility] B RNA Negative Negative [facility] RSV RNA Negative Negative [facility] Comment: Interpretive data: Testing performed by [facility]. This test is performed using the [employer] Xpert Xpress CoV-2/Flu/RSV plus assay. This is a multiplex, real-time reverse transcriptase PCR assay intended for the qualitative detection of nucleic acid from SARS-CoV-2, influenza A, influenza B, and respiratory syncytial virus. This assay has been cleared by the [place] Food and Drug administration. The performance characteristics have been verified by the [facility]. Results must be considered in the clinical context, and a negative result does not rule out infection. Interpretive Data last revised 2023 Nasopharyngeal 11/17/2024 12 :00 PM CDT 11/17/2024 8:14 PM CDT Narrative [facility] 11/17/2024 9:00 PM CDT Is the Patient experiencing symptoms consistent with COVID?->Yes us Felicity Parmar MD LAB MICROBIOLOGY - [facility] [place] [id number] [address] Department [place] [address] * Throat culture Throat (11/17/2024 12:00 PM CDT) Report Final Report: No growth of pathogens. Comment:Testing performed by : [facility], [address], [place]., [address] Throat 11/17/2024 12:0 0 PM CDT 11/17/2024 9:54 PM CDT Narrative [facility] 11/18/2024 6:16 PM CDT Testing performed by [facility] ([phone]). us Felicity Parmar MD LAB MICROBIOLOGY - [facility] [place] [address] [address] Department [place] [address] * eGFR (09/26/2024 3:39 PM [facility] [employer]) eGFR 64 >=60 mL/min/1. 73 m2 Comment: Interpretive Data Reference Interval Normal >/= 90 mL/min/1.73m2 Mildly decreased* 60 - 89 mL/min/1.73m2 Mildly to moderately decreased 45 - 59 mL/min/1.73m2 Moderately to severely decreased 30 - 44 mL/min/1.73m2 Severely decreased 15 - 29 mL/min/1.73m2 Kidney Failure < 15 mL/min/1.73m2 *Relative to young adult level Estimated glomerular filtration rate is determined by the 2020 CKD-EPI equation recommended by the National Kid[employer] (A Unifying Approach to GFR Estimation: Recommendations of the NKF-ASK Task Force on Reassessing the Inclusion of Race in Diagnosing Kidney Disease, JASN 2020). The CKD-EPI equation should not be used for patients with unstable renal function and has not been validated in children and those over 70. Current interpretive data was last reviewed 2021. Blood 09/26/2024 3:39 PM [facility] 09/26/2024 3:43 PM [employer] us Jacek Madrigal MD LAB BLOOD ORDERABLES Fi nal Result [facility] ([place]) [address] [facility] Department [place] [address] * Differential, auto (09/26/2024 3:39 PM [facility] [employer]) Neutrophil abs 3.9 1.5 - 6.5 K/cumm Imm gran abs 0.0 0.0 - 0.1 K/cumm [facility] ([place]) Lymphocyte abs 2.4 0.8 - 3.3 K/cumm [facility] ([place]) Monocyte abs 0.7 0.2 - 0.8 K/cumm [facility] ([place]) Eosinophil abs 0.2 0.0 - 0.5 K/cumm [facility] ([place]) Basophil abs 0.0 0.0 - 0.1 K/cumm [facility] ([place]) Neutrophil pct 54.4 % [facility] ([place]) Comment: Interpretive Data Percent cell count reference ranges are not reported, since discordance with absolute values may lead to misinterpretation of CBC data. Current Interpretive Data was last revised on 2017. Imm gran pct 0.4 % [facility] ([place]) Comment: Interpretive Data Percent cell count reference ranges are not reported, since discordance with absolute values may lead to misinterpretation of CBC data. Current Interpretive Data was last revised on 2017. Lymphocyte pct 33.1 % [facility] ([place]) Comment: Interpretive Data Percent cell count reference ranges are not reported, since discordance with absolute values may lead to misinterpretation of CBC data. Current Interpretive Data was last revised on 2017. Monocyte pct 9.5 % [facility] ([place]) Comment: Interpretive Data Percent cell count reference ranges are not reported, since discordance with absolute values may lead to misinterpretation of CBC data. Current Interpretive Data was last revised on 2017. Eosinophil pct 2.2 % [facility] ([place]) Comment: Interpretive Data Percent cell count reference ranges are not reported, since discordance with absolute values may lead to misinterpretation of CBC data. Current Interpretive Data was last revised on 2017. Basophil pct 0.4 % [facility] ([place]) Comment: Interpretive Data Percent cell count reference ranges are not reported, since discordance with absolute values may lead to misinterpretation of CBC data. Current Interpretive Data was last revised on 2017. Blood 09/26/2024 3:39 PM [facility] 09/26/2024 3:43 PM [employer] us Jacek Madrigal MD LAB BLOOD ORDERABLES Fi nal Result PA [facility] ([place]) 1 [facility] Department [place] [address] * Thyroid Function [facility] (09/26/2024 3:39 PM [facility] [employer]) TSH 0.61 0.30 - 4.20 mcIUnit/mL Blood 09/26/2024 3:39 PM [facility] 09/26/2024 3:43 PM [facility] Jacek Madrigal MD LAB BLOOD ORDERABLES Fi nal Result Performing Organization Address [facility] Co de Phone Number [facility] ([place]) 1 [facility] Department [place] [address] * CBC with auto differential (09/26/2024 3:39 PM [facility] [employer]) Pathologist [facility] WBC 7.2 3.8 - 9.9 K/cumm Hgb 14.1 13.0 - 17.5 g/dL [facility] ([place]) Hct 41.5 38.9 - 50.3 % [facility] ([place]) Plt 208 150 - 400 K/cumm [facility] ([place]) MPV 9.3 9.1 - 12.3 fL [facility] ([place]) RBC 4.38 4.30 - 5.80 M/cumm [facility] ([place]) MCV 94.7 81.3 - 96.4 fL [facility] ([place]) MCH 32.2 27.1 - 33.3 pg [facility] ([place]) MCHC 34.0 32.3 - 35.7 g/dL [facility] ([place]) RDW CV 11.9 11.1 - 14.9 % [facility] ([place]) RDW SD 41.2 35.7 - 48.1 fL [facility] ([place]) NRBC abs 0.00 0.00 - 0.01 K/cumm [facility] ([place]) Blood 09/26/2024 3:39 PM [facility] [employer] 09/26/2024 3:43 PM [facility] [employer] us Jacek Madrigal MD LAB BLOOD ORDERABLES Fi nal Result [facility] ([place]) 1 [facility] [id number]|2024-12-15 11:22:35|2024-12-15 11:22:35|ED.GENADULT||||"HPI - General Adult General Chief complaint: Unspecified Stated complaint: requesting special enema for constipation Time Seen by Provider: 12/15/24 11:02 Source: patient Mode of arrival: ambulatory Limitations: no limitations History of Present Illness HPI narrative: This is a 89-year-old male that presents to the emergency department for constipation. Reports he does not believe he has had a bowel movement since the end of last month. He has been seeing his primary provider for this. He has tried several [id number] laxatives, stool softeners, enemas without relief. He is also taking Linzess. Denies fevers, vomiting. Related Data Home Medications Medication Instructions Recorded Confirmed Last Taken Type aspirin 81 mg tablet,delayed 81 mg PO DAILY 07/17/19 12/15/24 Unknown History release (Adult Low Dose Aspirin) multivitamin 1 tablet PO DAILY 07/17/19 12/15/24 Unknown History polyethylene glycol 3350 17 17 gm PO DAILY 07/17/19 12/15/24 Unknown History gram/dose oral powder (Miralax) triamterene 37.5 1 cap PO DAILY 07/17/19 12/15/24 Unknown History mg-hydrochlorothiazide 25 mg capsule acetaminophen 325 mg capsule 650 mg PO Q6H PRN fever or pain 09/01/21 12/15/24 Unknown History (Tylenol) amlodipine 10 mg tablet 10 mg PO DAILY 09/01/21 12/15/24 Unknown History atorvastatin 10 mg tablet (Lipitor) 10 mg PO DAILY 10/12/22 12/15/24 Unknown History diphenhydramine HCl 25 mg tablet 50 mg PO .qhs PRN allergy symptoms 10/12/22 12/15/24 Unknown History (Benadryl Allergy) Allergies Allergy/AdvReac Type Severity Reaction Status Date / Time No Known Allergies Allergy Verified 12/15/24 10:41 Review of Systems Review of Systems: CONSTITUTIONAL: Denies fever, chills, or sweats. EYES: Denies visual changes, redness, or discharge. ENT: Denies rhinorrhea, congestion, sore throat, or otalgia. CARDIOVASCULAR: Denies chest pain, palpitations, or edema. RESPIRATORY: Denies cough or dyspnea. GASTROINTESTINAL: Denies abdominal pain, nausea, vomiting, or diarrhea. GENITOURINARY: Denies dysuria or hematuria. SKIN: Denies rash or itching. MUSCULOSKELETAL: Denies back pain, joint pain, or myalgia. NEUROLOGIC: Denies headache, numbness, or weakness. PSYCHIATRIC: Denies anxiety or depression. All systems reviewed & are unremarkable except as noted in HPI and below PMFSH Past Medical History Medical History Constipation by delayed colonic transit Angioedema of lips Diabetes mellitus with neurologic complication, with long-term current use of insulin Dyspnea Presence of permanent cardiac pacemaker History of thymoma Macular degeneration Pancreatic cyst neg bx HTN (hypertension) Diabetes Surgical History Surgical History History of hemorrhoidectomy Family History Family History Sibling Patient's sister is in good health Mother Diabetes mellitus Glaucoma Father Malignant neoplasm of prostate Social History Social History Smoking status: Former smoker Smoking end date: 08/09/1961 Alcohol intake: current Alcohol use details: occasional Lack of Transportation: No Lack of Food: Never True Current Housing: I Have Housing Concerned About Future Housing: No Difficulty Paying Gas/Electric Bills: No Difficulty Paying for Meds: No Currently Unemployed: No Education: High School Diploma/GED Difficulty w/ Childcare or Family Care: No Course Course Emergency Course: Patient and family updated on workup and agree with plan of care Consultations Consultation #1: Patient's PCP called, would like patient to have soap suds enema to help relieve his constipation as they have tried numerous other medications outpatient Date: 12/15/24 Vital Signs Vital signs: Vital Signs Temperature 97.5 F L 12/15/24 10:58 Pulse Rate 76 12/15/24 10:58 Respiratory Rate 18 12/15/24 10:58 Blood Pressure 150/58 H 12/15/24 10:58 Pulse Oximetry 100 12/15/24 10:58 Oxygen Delivery Room Air 12/15/24 10:58 Temperature 97.9 F 12/15/24 12:17 Pulse Rate 81 12/15/24 13:17 Respiratory Rate 16 12/15/24 13:17 Blood Pressure 164/68 H 12/15/24 13:17 Pulse Oximetry 99 12/15/24 13:17 Oxygen Delivery Room Air 12/15/24 10:58 Medical Decision Making MDM Narrative Medical decision making narrative: Patient presents to the emergency department for constipation. He is afebrile and nontoxic appearing. His vitals are stable. Cbc without leukocytosis. Metabolic panel without concerning findings. KUB shows nonspecific dilation, possible obstruction. Patient was not able to urinate. He did not feel like even needed to. Bladder scan showed he had over 800 cc in his bladder. Sanders catheter was placed. CT obtained for further evaluation. No evidence of obstruction. He has some pancreatic cysts which were seen on previous imaging. Enlarged prostate. Likely source of patient's difficulty urinating. He had a soapsuds enema with moderate output. Patient and family were updated on his workup and agree with plan of care. Instructed to have further follow-up with his primary provider and will be given follow-up with urology. They were given warnings to return to the ER Differential Diagnosis Differential Diagnosis: Constipation, dehydration, bowel obstruction, urinary retention, UTI, prostatomegaly Vital Signs Vital Signs: Vital Signs Temperature 97.5 F L 12/15/24 10:58 Pulse Rate 76 12/15/24 10:58 Respiratory Rate 18 12/15/24 10:58 Blood Pressure 150/58 H 12/15/24 10:58 Pulse Oximetry 100 12/15/24 10:58 Oxygen Delivery Room Air 12/15/24 10:58 Temperature 97.9 F 12/15/24 12:17 Pulse Rate 81 12/15/24 13:17 Respiratory Rate 16 12/15/24 13:17 Blood Pressure 164/68 H 12/15/24 13:17 Pulse Oximetry 99 12/15/24 13:17 Oxygen Delivery Room Air 12/15/24 10:58 Lab Data Lab results reviewed: Yes I reviewed the patient's lab results. 12/15/24 12:05 12/15/24 12:05 Labs: Lab Results 12/15/24 12/15/24 Range/Units 12:05 12:53 WBC 9.9 (4.5-10.0) K/mm3 RBC 3.98 L (4.6-6.20) M/mm3 Hgb 12.0 L (14.0-18.0) g/dL Hct 36.8 L (42.0-52.0) % MCV 92.5 (80-100) fl MCH 30.2 (26-34) pg MCHC 32.6 (32-36) g/dl RDW 14.1 (11.5-14.5) % Plt Count 230 (150-375) k/mm3 MPV 10.2 (7.4-10.4) fl Immature Gran % (Auto) 0.2 (0-0.5) % Neut % (Auto) 75.6 H (45.5-73.1) % Lymph % (Auto) 15.8 L (18.3-44.2) % [place] % (Auto) 5.7 (2.6-8.5) % Eos % (Auto) 2.3 (0-4.4) % Baso % (Auto) 0.4 (0.2-1.2) % Lymph # (Auto) 1.56 (0.9-3.2) K/mm3 [place] # (Auto) 0.6 (0.1-0.6) K/mm3 Eos # (Auto) 0.2 (0-0.3) K/mm3 Baso # (Auto) 0.0 (0.0-0.1) K/mm3 Abs Immat Gran (auto) 0.02 (0.00-0.031) K/mm3 Absolute Neuts (auto) 7.5 H (1.3-6.7) K/mm3 Absolute Nucleated RBC 0.000 (0.0-0.012) K/mm3 Nucleated RBC % 0.0 (0.0-0.2) % Sodium 133 L (137-145) mmol/L Potassium 5.0 (3.4-5.0) mmol/L Chloride 100 (98-107) mmol/L Carbon Dioxide 25 (22-30) mmol/L Anion Gap 8 (4-12) mmol/L BUN 23 H (9-20) mg/dL Creatinine 1.00 (0.7-1.3) mg/dL Estim Creat Clear Calc 45 ml/min Estimated GFR > 60 (59 - ) Glucose 96 (65-110) mg/dL Calcium 9.0 (8.4-10.2) mg/dL Total Bilirubin 0.6 (0.2-1.3) mg/dL AST 31 (17-59) U/L ALT 20 (6-50) U/L Alkaline Phosphatase 85 (38-126) U/L Total Protein 7.0 (6.3-8.2) g/dL Albumin 4.3 (3.5-5.1) g/dL Urine Color Yellow (Yellow) Urine Appearance Clear (Clear) Urine pH 6.5 (5.0-9.0) Ur Specific [place] 1.012 (1.001-1.035) Urine Protein Negative (Negative) mg/dL Urine Glucose (UA) Negative (Negative) mg/dL Urine Ketones Negative (Negative) mg/dL Ur Blood (Man) Negative (Negative) Urine Nitrate Negative (Negative) Urine Bilirubin Negative (Negative) Urine Urobilinogen 0.2 (<2.0) mg/dL Leukocyte Esterase Rfl Negative (Negative) JAYRO/UL Imaging Data Radiologist's impression: ITS Impressions Abdomen X-Ray 12/15/24 11:16 Impression: 1: Nonspecific dilation of the colon and possible small bowel which may be due to fecal impaction or obstruction. Abdomen/Pelvis CT 12/15/24 14:25 Impression: Probable cystitis. Correlate with urinalysis. No evidence of bowel obstruction. Stable multiseptated/multiloculated cystic masses of the pancreatic tail and uncinate process. Please see recent CT from 12/11/2024 for further details. Bilateral fat-containing inguinal hernias. Enlarged prostate gland. Critical Care Time Critical Care Time Critical Care Time: No Discharge Plan Discharge Clinical Impression: Acute urinary retention, Pancreas cyst Constipation Qualifiers: Constipation type: unspecified constipation type Qualified Code(s): K59.00 - Constipation, unspecified Patient Disposition: Home Condition: Improved Instructions: Constipation (ED), Urinary Retention in Men (ED), Sanders Catheter Placement and Care (ED) Additional Instructions: Return to the ER if you experience fever, abdominal pain with nausea and vomiting, you are unable to keep down liquids or solids, or any other symptoms that are concerning to you Remain well hydrated. Increase fresh fruit and vegetables in your diet. Continue bowel regimen as directed by Dr. Lovelace. I am hopeful that now your bladder is draining properly this will help with your constipation Sanders catheter care as directed Follow up with your primary care doctor and Urology Patient Language: Tristanian Prescriptions: No Action aspirin [Adult Low Dose Aspirin] 81 mg tablet,delayed release (DR/EC) 81 mg PO DAILY polyethylene glycol 3350 [Miralax] 17 gram/dose powder 17 gm PO DAILY multivitamin Tablet 1 tablet PO DAILY triamterene-hydrochlorothiazid 37.5-25 mg capsule 1 cap PO DAILY amlodipine 10 mg tablet 10 mg PO DAILY acetaminophen [Tylenol] 325 mg capsule 650 mg PO Q6H PRN (Reason: fever or pain) atorvastatin [Lipitor] 10 mg tablet 10 mg PO DAILY diphenhydramine HCl [Benadryl Allergy] 25 mg tablet 50 mg PO .qhs PRN (Reason: allergy symptoms) Ozempic 0.25 mg or 0.5 mg (2 mg/3 mL) pen injector 0.5 mg subcut WEEKLY Qty: 9 3RF losartan 50 mg tablet 50 mg PO DAILY Qty: 90 3RF (DME) OneTouch Ultra Test Strip See Rx Instructions .Route Qty: 100 5RF Rx Instructions: US to check blood suagrs twice a day metformin 500 mg tablet extended release 24 hr 1,000 mg PO BID Qty: 360 1RF pantoprazole 40 mg tablet,delayed release (DR/EC) 40 mg PO DAILY Qty: 90 1RF (DME) pen needle, diabetic [BD Ultra-Fine Micro Pen Needle] 32 gauge x 1/4 needle See Rx Instructions .Route Qty: 300 1RF Rx Instructions: For use with insulin BID cyclobenzaprine 5 mg tablet 5 - 10 mg PO BID PRN (Reason: muscle spasm) Qty: 20 0RF insulin glargine [Lantus Solostar U-100 Insulin] 100 unit/mL (3 mL) insulin pen 25 unit subcut QAM Qty: 15 3RF Rx Instructions: inject 25u by subcutaneous route in the am only linaclotide 145 mcg capsule 145 mcg PO DAILY Qty: 30 1RF Follow-up/Referrals: Jericho Bustillos MD [Physician] - Case Lovelace DO [Primary Care Provider] - "
--- OUTSIDE RECORDS SUMMARY | 2024-12-21 14:23 | XMS_ITS | Referral Summary ---
Author Organization [facility] B Address [address] [place] [address] Care Team Providers Care Process Development Associate Name Role Phone Cheyenne Burk Unavailable Jermaine Cormier MD Unavailable [phone] Zeke Steve NP Unavailable [phone] Eladio Villasenor MD Unavailable [phone] Sumit Butt MD Unavailable [phone] Felicity Parmar MD Primary Care Provide r Encounters Date Type Department Care Team Description 11/20/2024 Results Follow-Up [facility] Primary Care at [address] [address] Felicity Parmar MD 11/18/2024 Results Follow-Up [facility] at [place] [address] [place] [address] [address] [place] [phone] Lalita Lopez NP 11/17/2024 7:40 PM CDT - 11/17/2024 11:59 PM CDT Hospital Encounter [address] [address] Acute cough Discharge Disposition: Discharge to home or self care 11/17/2024 Orders Only [facility] Primary Care at [address] [place] [address] Felicity Parmar MD Encounter for long-term (current) use of medications (Primary Dx); Fatigue, unspecified type 11/17/2024 12:16 PM CDT - 11/17/2024 11:59 PM CDT Hospital Encounter [address] [address] Upper respiratory tract infection, unspecified type Discharge Disposition: Discharge to home or self care 11/17/2024 11:00 AM CDT Office Visit [facility] Primary Care at [address] [address] Felicity Parmar MD Encounter to establish care (Primary Dx); Essential hypertension; Class 1 obesity due to excess calories with serious comorbidity and body mass index (BMI) of 33.0 to 33.9 in adult; Other insomnia; Primary insomnia; Acute cough; Sore throat; Benign prostatic hyperplasia with lower urinary tract symptoms, symptom details unspecified; 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); Fatigue, unspecified type 11/15/2024 2:45 PM CDT Office Visit [facility] [address] [place] [phone] Tayla Mcpherson NP Upper respiratory tract infection, unspecified type (Primary Dx); Sore throat 11/15/2024 Nurse Triage [facility] Primary Care at [address] [phone] Jacek Madrigal MD 09/27/2024 Results Follow-Up [facility] Primary Care at [address] [address] Jacek Madrigal MD 09/26/2024 3:35 PM PUMPING SUPERVISOR Lab [address] [address] Morbid obesity with BMI of 45.0-49.9, adult (HCC); Essential hypertension 09/26/2024 3:00 PM PUMPING SUPERVISOR Office Visit [facility] Primary Care at [address] [phone] Jacek Madrigal MD Preventative health care (Primary Dx); Essential hypertension; 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); Morbid obesity with BMI of 45.0-49.9, adult (HCC); Bilateral hearing loss, unspecified hearing loss type; Primary insomnia; Benign prostatic hyperplasia with lower urinary tract symptoms, symptom details unspecified; S/P arthroscopy of right shoulder from Last 3 Months Allergies Active Allergy Reactions Criticality Noted Date [...] 09/26/2024 Assessment & Plan (09/26/2024 3:07 PM PUMPING SUPERVISOR): - s/p right sholder arthroscopy 04/2023 for the following Complete tear of right rotator cuff, unspecified whether traumatic Arthritis of right acromioclavicular joint Biceps tendinitis on right Impingement syndrome of right shoulder Preventative health care 09/26/2024 Assessment & Plan (09/26/2024 3:13 PM PUMPING SUPERVISOR): - New or chronic worsening conditions: no [...] symptoms 03/23/2024 Overview (04/25/2024): Managed by Urology [facility] Dr. Butt Assessment & Plan (11/17/2024 11:45 AM CDT): Continue following with urology Assessment & Plan (09/26/2024 3:06 PM PUMPING SUPERVISOR): - chronic condition, stable status - symptoms were trouble urinating, straining - follows with Urology - Dr. 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 Assessment & Plan (09/26/2024 2:58 PM PUMPING SUPERVISOR): - chronic condition, stable status - hx [...] neurology Assessment & Plan (09/26/2024 2:57 PM PUMPING SUPERVISOR): - chronic condition, stable status - had [...] 09/26/2024 Assessment & Plan (09/26/2024 2:57 PM PUMPING SUPERVISOR): Blood Pressure Management BP Readings from Last [...] shoulder 11/03/2022 09/26/2024 Seizure disorder 03/11/2020 03/24/2024 Immunizations Immunization Administration Dates Next Due DTaP [...] PPV23 10/02/2020 Tdap 10/02/2015 ZOSTER Recombinant 05/02/2023,02/03/2023 Social History Tobacco Use Types Packs/Day Years [...] on file Legal Sex Male 7:20 PM PUMPING SUPERVISOR Gender Identity Not on file Sexual Orientation Not on file Last Filed Vital Signs Vital Sign Reading [...] 11/17/2024 10:45 AM CDT Plan of Treatment Not on file Medical Devices Implanted Type Area Skilled Nursing Facilities Professional Device Identifier Shelf Expiration Date Model / Serial / Lot [employer] Sutton Suture 3.9mm Swivelock Biocomposite 17.9mm Ar-2326bcc - [id number] Implanted:Qty: 1 on 04/19/2023 by Jermaine Cormier MD at [facility] Right: Shoulder [employer] 11/06/2026 AR-2326BC C / / [id number] [employer] Swivelock C 4.75mm 19.1mm Close Eyelet Tape Loop Vent Sutton Ar-2324bcct - [id number] Implanted:Qty: 1 on 04/19/2023 by Jermaine Cormier MD at [facility] Right: Shoulder [employer] [id number] 01/06/[address] AR-[address] / / [id number] [employer] Swivelock C 4.75mm 19.1mm Closed Eyelet Vent Sutton Suture Ar-2324bcctt - [id number] Implanted:Qty: 1 on 04/19/2023 by Jermaine Cormier MD at [facility] Right: Shoulder [employer] [id number] 02/05/2027 AR-2324BC CTT / / [id number] [employer] Swivelock C 4.75mm 19.1mm Closed Eyelet Vent Sutton Suture Ar-2324bcc - [id number] Implanted:Qty: 1 on 04/19/2023 by Jermaine Cormier MD at [facility] Right: Shoulder [employer] 01/06/2027 AR-2324BC C / / [id number] [employer] Swivelock C 4.75mm 19.1mm Closed Eyelet Vent Sutton Suture Ar-2324bcc - [id number] Implanted:Qty: 1 on 04/19/2023 by Jermaine Cormier MD at [facility] Right: Shoulder [employer] 01/06/2027 AR-2324BC C / / [id number] [employer] Fiberlink Arthrex Suturetape 1.3mm Tape Suture Nonabsorbable Ar-7535 - [id number] Implanted:Qty: 1 on 04/19/2023 by Jermaine Cormier MD at [facility] Right: Shoulder [employer] 01/06/2027 [...] Acute cough EGFR Routine 09/26/2024 3:39 PM PUMPING SUPERVISOR Essential hypertension DIFFERENTIAL AUTO Routine 09/26/2024 3:3 9 PM PUMPING SUPERVISOR Essential hypertension CBC WITH AUTO DIFFERENTIAL Routine 09/26/2024 3:39 PM PUMPING SUPERVISOR Essential hypertension COMPREHENSIVE METABOLIC PANEL Routine 09/26/2024 3:39 PM PUMPING SUPERVISOR Essential hypertension LIPID PANEL Routine 09/26/2024 3:39 PM PUMPING SUPERVISOR Morbid obesity with BMI of 45.0-49.9, adult (HCC) THYROID FUNCTION CASCADE Routine 09/26/2024 3:39 PM PUMPING SUPERVISOR Morbid obesity with BMI of 45.0-49.9, adult [...] signed by Wm HELLER: ARRON Report ID: [id number] Reading Location: [place] [address] Procedure Note Wm Claire MD - 11/18/2024 [...] signed by Wm HELLER: ARRON Report ID: [id number] Reading Location: [id number] us Tayla Mcpherson TECHNICAL INFORMATION SPECIALIST IMG XR PROCEDURES Fin al Result * Influenza A/B, RSV, and COVID-19 PCR Nasopharyngeal (11/17/2024 12:00 PM CDT) COVID-19 RNA Negative Negative Influenza A RNA Negative Negative [facility] Influenza B RNA Negative Negative [facility] RSV RNA Negative Negative [facility] Comment: Interpretive data: Testing performed by [facility]. This test is performed using the [employer] Xpert Xpress CoV-2/Flu/RSV plus assay. This is a multiplex, real-time reverse transcriptase PCR assay intended for the qualitative detection of nucleic acid from SARS-CoV-2, influenza A, influenza B, and respiratory syncytial virus. This assay has been cleared by the [place] Food and Drug administration. The performance characteristics have been verified by the [facility]. Results must be considered in the clinical context, and a negative result does not rule out infection. Interpretive Data last revised 2023 Nasopharyngeal 11/17/2024 12 :00 PM CDT 11/17/2024 8:14 PM CDT Narrative [facility] - 11/17/2024 9:00 PM CDT Is the Patient experiencing symptoms consistent with COVID?->Yes Felicity Parmar MD LAB MICROBIOLOGY - GE NERAL ORDERABLES Final Result Performing Organization Address City/State/[facility] [place] [address] [facility] Department [place] [address] [place] * Throat culture Throat (11/17/2024 12:00 PM CDT) Report Final Report: No growth of pathogens. Comment:Testing performed by : [facility], [address] [place]., [address] Throat 11/17/2024 12:0 0 PM CDT 11/17/2024 9:54 PM CDT Narrative [facility] - 11/18/2024 6:16 PM CDT Testing performed by [facility] Microbiology Laboratory ([phone]). us Felicity Parmar MD LAB MICROBIOLOGY - [place] [id number] [facility] Department [place] [address] * eGFR (09/26/2024 3:39 PM PUMPING SUPERVISOR) eGFR 64 >=60 mL/min/1. 73 m2 Comment: [...] last reviewed 2021. Blood 09/26/2024 3:39 PM PUMPING SUPERVISOR 09/26/2024 3:43 PM PUMPING SUPERVISOR us Jacek Madrigal MD LAB BLOOD ORDERABLES Fi nal Result [facility] ([place]) 1 [facility] Department [place] [address] * Differential, auto (09/26/2024 3:39 PM PUMPING SUPERVISOR) Neutrophil abs 3.9 1.5 - 6.5 K/cumm Imm gran abs 0.0 0.0 - 0.1 K/cumm [facility] ([place]) Lymphocyte abs 2.4 0.8 - 3.3 K/cumm [facility] ([place]) Monocyte abs 0.7 0.2 - 0.8 K/cumm [facility] ([place]) Eosinophil abs 0.2 0.0 - 0.5 K/cumm [...] revised on 2017. Blood 09/26/2024 3:39 PM PUMPING SUPERVISOR 09/26/2024 3:43 PM PUMPING SUPERVISOR us Jacek Madrigal MD LAB BLOOD ORDERABLES Fi nal Result [facility] ([place]) 1 [facility] Department [place] [address] * Thyroid Function [place] (09/26/2024 3:39 PM PUMPING SUPERVISOR) TSH 0.61 0.30 - 4.20 mcIUnit/mL Blood 09/26/2024 3:39 PM PUMPING SUPERVISOR 09/26/2024 3:43 PM PUMPING SUPERVISOR Jacek Madrigal MD LAB BLOOD ORDERABLES Fi nal Result Performing Organization Address [facility] Co de Phone Number [facility] ([place]) [address] [facility] [place] [address] * CBC with auto differential (09/26/2024 3:39 PM PUMPING SUPERVISOR) [facility] WBC 7.2 3.8 - 9.9 K/cumm Hgb [...] [facility] ([place]) Blood 09/26/2024 3:39 PM PUMPING SUPERVISOR 09/26/2024 3:43 PM PUMPING SUPERVISOR Jacek Madrigal MD LAB BLOOD ORDERABLES Fi nal Result Performing Organization Address City/[facility]/ZIP Co de Phone Number [facility] ([place]) 1 [facility] [employer] [place] [address] * (ABNORMAL) Lipid panel (09/26/2024 3:39 PM PUMPING SUPERVISOR) Cholesterol 184 30 - 199 mg/dL Comment: Interpretive Data Ages < or = 19 years Acceptable: <170 mg/dL Borderline high: 170-199 mg/dL High: >or= 200 mg/dL Ages > or = 20 years Desirable: <200 mg/dL Borderline high: 200-239 mg/dL High: >or= 240 mg/dL Literature References: 1. Expert Panel on Integrated Guidelines for Cardiovascular Health and Risk Reduction in Children and Adolescents. Pediatrics 2011;128:S213 2. NCEP Expert Panel. Circulation 2004;110:227 Current Interpretive Data was last revised on 2018. Triglycerides 392(H) <=149 mg/dL [facility] ([place]) Comment: Interpretive Data Ages < or = 9 years Acceptable: <75 mg/dL Borderline high: 75-99 mg/dL High: >or= 100 mg/dL Ages 10 to 20 years Acceptable: <90 mg/dL Borderline high: 90-129 mg/dL High: >or= 130 mg/dL Ages > or = 20 years Desirable: <150 mg/dL Borderline high: 150-199 mg/dL High: 200-499 mg/dL Very high: >or= 499 mg/dL Literature References: 1. Expert Panel on Integrated Guidelines for Cardiovascular Health and Risk Reduction in Children and Adolescents. Pediatrics 2011;128:S213 2. NCEP Expert Panel. Circulation 2003;110:227 Current Interpretive Data was last revised on 2018. HDL 37(L) >=40 mg/dL [facility] ([place]) Comment: Interpretive Data Ages < or = 19 years Acceptable: >45 mg/dL Borderline low: 40-45 mg/dL Low: <40 mg/dL Ages > or = 20 years Desirable: >or= 60 mg/dL Low: <40 mg/dL Literature References: 1. Expert Panel on Integrated Guidelines for Cardiovascular Health and Risk Reduction in Children and Adolescents. Pediatrics 2011;128:S213 2. NCEP Expert Panel. Circulation 2004;110:227 Current Interpretive Data was last revised on 2018. LDL, calculated 83 <=129 mg/dL [facility] ([place]) Comment: Interpretive Data Ages < or = 19 years Acceptable: <110 mg/dL Borderline high: 110-129 mg/dL High: > [id number]|[id number]|2024-12-21 14:23:00|2024-12-21 14:23:00|XMS_ITS|BAY TRIPP|External Medical Summaries|[id number]|" Data Portability Created on: December 21, 2024 Terrence Wm Gloria .[id number] : 1955 Sex: Male Author Organization [place] - [facility] [employer], Main Office Address [address] [place] [address] Care Team Providers Care Process Development Associate Name Role Phone DELIA ATKINS Primary Care Provider DELIA ATKINS Referring Provider [phone] Assessment No assessment recorded. Plan of Treatment Reminders Order Date Submit Date Provider Last Modified By Organization Details Last Modified Time Details Appointments None recorded. Lab HbA1c (hemoglobin A1c), blood 2023 024 [facility] (Lab), [address] [place], [address], 4 22:48:09 TSH, serum or plasma 2023 024 [facility] (Lab), [address] [place], [address], 4 21:47:24 CBC w/ auto diff 2023 024 [facility] (Lab), [address] [place], [address], 4 20:41:45 CMP, serum or plasma 2023 024 [facility] (Lab), [address] [place], [address], 4 21:38:50 magnesium, serum or plasma 2023 024 [facility] ([facility]), [address] [place], [address], 4 21:38:54 HbA1c (hemoglobin A1c), blood 2022 023 ALEJANDRO Not available 3 02:40:56 CBC w/ auto diff 2022 023 ALEJANDRO Not available 20:32:57 BMP, serum or plasma 2022 023 ALEJANDRO Not available 3 22:06:00 lipid panel, serum 2022 023 ALEJANDRO Not available 22:06:05 hepatic function panel, serum 2022 023 ALEJANDRO Not available 3 22:06:11 Referral None recorded. Procedures None recorded. Surgeries None recorded. Imaging electrocard iogram 2023 024 [email or web address] [address] [facility] [address], [place], [address], 4 18:03:34 Medication Orders Restoril 7.5 mg capsule 2023 024 [email or web address] [id number], [address] [place], [address], 4 11:58:12 albuterol sulfate HFA 90 mcg/actuati on aerosol inhaler 2023 024 [email or web address] [id number], [address] [place], [address], 4 16:51:48 sertraline 25 mg tablet 2023 024 [email or web address] [id number], [address] [place], [address], 4 12:10:48 alprazolam 0.25 mg tablet 2023 024 [email or web address] [id number], [address] [place], [address], 4 16:50:06 Patient TargetsNo targets recorded. Patient InstructionsNo instructions recorded. Reason for Referral None Reported. Results Created Date Observation Date Name Description Value Unit Range Abnormal Flag Note LastModifiedBy Organization Detail LastModifiedTime 06/08/2006/08/2023 CBC/C OMPLE TE BLD COUNT W/DIF F white blood cells 5.2 x10'3 /uL 4.2-10 .8 Not Available [facility] (Lab) [address] [place], [address], 06/08/2023 20:32:57 06/08/2006/08/2023 CBC/C OMPLE TE BLD COUNT W/DIF F red blood cells 4.45 x10'6 /uL 4.10-5 .80 Not Available [facility] (Lab) [address] [place], [address], 06/08/2023 20:32:57 06/08/2006/08/2023 CBC/C OMPLE TE BLD COUNT W/DIF F hemoglobin 14.4 g/dL 13.2-1 7.0 Not Available [facility] (Lab) [address] [place], [address], 06/08/2023 20:32:57 06/08/2006/08/2023 CBC/C OMPLE TE BLD COUNT W/DIF F hematocrit 43.6 % 39.3-5 0.0 Not Available [facility] (Lab) [address] [place], [address], 06/08/2023 20:32:57 10/31/20 23 06/08/2023 CBC/C OMPLE TE BLD COUNT W/DIF F mean red cell volume 98.0 fL 80.0-9 7.0 high Not Available [facility] (Lab) [address] [place], [address], 06/08/2023 20:32:57 06/08/2006/08/2023 CBC/C OMPLE TE BLD COUNT W/DIF F mean red cell hemoglobin 32.4 pg 27.0-3 3.0 Not Available [facility] (Lab) [address] [place], [address], 06/08/2023 20:32:57 06/08/2006/08/2023 CBC/C OMPLE TE BLD COUNT W/DIF F mean RBC HGB concentratio n 33.0 g/dL 31.0-3 6.0 Not Available [facility] (Lab) [address] [place], [address], 06/08/2023 20:32:57 06/08/2006/08/2023 CBC/C OMPLE TE BLD COUNT W/DIF F red cell distribution width 11.9 % 11.8-1 5.5 Not Available [facility] (Lab) [address] [place], [address], 06/08/2023 20:32:57 06/08/2006/08/2023 CBC/C OMPLE TE BLD COUNT W/DIF F platelets 233 x10'3 /uL 150-40 0 Not Available [facility] (Lab) [address] [place], [address], 06/08/2023 20:32:57 06/08/2006/08/2023 CBC/C OMPLE TE BLD COUNT W/DIF F mean platelet volume 10.8 fL 9.0-12 .4 Not Available [facility] (Lab) [address] [place], [address], 06/08/2023 20:32:57 06/08/2006/08/2023 CBC/C OMPLE TE BLD COUNT W/DIF F neutrophils 55.6 % 39.0-7 2.0 Not Available [facility] (Lab) [address] [place], [address], 06/08/2023 20:32:57 06/08/2006/08/2023 CBC/C OMPLE TE BLD COUNT W/DIF F lymphocytes 34.6 % 16.0-4 7.0 Not Available [facility] (Lab) [address] [place], [address], 06/08/2023 20:32:57 06/08/2006/08/2023 CBC/C OMPLE TE BLD COUNT W/DIF F monocytes 8.8 % 5.0-12 .0 Not Available [facility] (Lab) [address] [place], [address], 06/08/2023 20:32:57 06/08/2006/08/2023 CBC/C OMPLE TE BLD COUNT W/DIF F eosinophils 0.0 % 1.0-7. 0 low Not Available [facility] (Lab) [address] [place], [address], 06/08/2023 20:32:57 06/08/2006/08/2023 CBC/C OMPLE TE BLD COUNT W/DIF F basophils 0.6 % 0.0-2. 0 Not Available [facility] (Lab) [address] [place], [address], 06/08/2023 20:32:57 06/08/2006/08/2023 CBC/C OMPLE TE BLD COUNT W/DIF F immature granulocytes 0.4 % 0.00-0 .50 Not Available [facility] (Lab) [address] [place], [address], 06/08/2023 20:32:57 06/08/2006/08/2023 CBC/C OMPLE TE BLD COUNT W/DIF F neutrophils, absolute count 2.91 x10'3 /uL 1.5-8. 0 Not Available [facility] (Lab) [address] [place], [address], 06/08/2023 20:32:57 06/08/2006/08/2023 CBC/C OMPLE TE BLD COUNT W/DIF F lymphocytes, absolute count 1.81 x10'3 /uL 1.07-3 .43 Not Available [facility] (Lab) [address] [place], [address], 06/08/2023 20:32:57 06/08/2006/08/2023 CBC/C OMPLE TE BLD COUNT W/DIF F monocytes, absolute count 0.46 x10'3 /uL 0.29-0 .99 Not Available [facility] (Lab) [address] [place], [address], 06/08/2023 20:32:57 06/08/2006/08/2023 CBC/C OMPLE TE BLD COUNT W/DIF F eosinophils, absolute count 0.00 x10'3 /uL 0.02-0 .53 low Not Available [facility] (Lab) [address] [place], [address], 06/08/2023 20:32:57 06/08/2006/08/2023 CBC/C OMPLE TE BLD COUNT W/DIF F basophils, absolute count 0.03 x10'3 /uL 0.01-0 .08 Not Available [facility] (Lab) [address] [place], [address], 06/08/2023 20:32:57 06/08/2006/08/2023 CBC/C OMPLE TE BLD COUNT W/DIF F immature granulocytes ,absolute 0.02 x10'3 /uL 0.00-0 .05 Not Available [facility] (Lab) [address] [place], [address], 06/08/2023 20:32:57 06/08/2006/08/2023 CBC/C OMPLE TE BLD COUNT W/DIF F nucleated red blood cells 0.0 % -0 Not Available [facility] (Lab) [address] [place], [address], 06/08/2023 20:32:57 06/08/2006/08/2023 CBC/C OMPLE TE BLD COUNT W/DIF F NRBC# 0.00 x10'3 /uL Not Available [facility] (Lab) [address] [place], [address], 06/08/2023 20:32:57 06/08/2006/08/2023 HEMOG LOBIN A1C HA1C 5.7 % 4.0-6. 0 Diabe german Scree bernard Crite [place]: <5.7% Consi stent with absen ce of diabe german 5.7-6 .4% Consi stent with incre ased risk for diabe german (pred iabet es) >OR=6 .5% Consi stent with diabe german REFER ENCE: Diabe german Care 2015, 39(Rene ppl.1 ):s13 -s22 Not Available [facility] (Lab) [address] [place], [address], 06/08/2023 21:27:46 06/08/2006/08/2023 BASIC METAB OLIC PANEL sodium 133 mmol/ L 137-14 5 low Not Available [facility] (Lab) [address] [place], [address], 06/08/2023 22:06:00 06/08/2006/08/2023 BASIC METAB OLIC PANEL potassium 4.5 mmol/ L 3.5-5. 1 Not Available [facility] (Lab) [address] [place], [address], 06/08/2023 22:06:00 06/08/2006/08/2023 BASIC METAB OLIC PANEL chloride 97 mmol/ L 98-107 low Not Available [facility] (Lab) [address] [place], [address], 06/08/2023 22:06:00 06/08/20 23 06/08/2023 BASIC METAB OLIC PANEL carbon dioxide 31 mmol/ L 22-30 high Not Available [facility] (Lab) [address] [place], [address], 06/08/2023 22:06:00 06/08/2006/08/2023 BASIC METAB OLIC PANEL anion gap 9.5 mmol/ L 14-22 low Not Available [facility] (Lab) [address] [place], [address], 06/08/2023 22:06:00 06/08/2006/08/2023 BASIC METAB OLIC PANEL glucose 112 mg/dL 70-99 high Not Available [facility] (Lab) [address] [place], [address], 06/08/2023 22:06:00 06/08/2006/08/2023 BASIC METAB OLIC PANEL BUN 13 mg/dL 8-19 Not Available [facility] (Lab) [address] [place], [address], 06/08/2023 22:06:00 06/08/2006/08/2023 BASIC METAB OLIC PANEL creatinine 0.76 mg/dL 0.66-1 .25 Not Available [facility] (Lab) [address] [place], [address], 06/08/2023 22:06:00 06/08/2006/08/2023 BASIC METAB OLIC PANEL GFR >60 Refer ence Range : Salcha ge GFR Healt hy Adult : >60 mL/mi n/1.7 3 m2 Chron ic Kidne y Disea se: 15-60 mL/mi n/1.7 3 m2 Kidne y Failu re: <15/m L/min /1.73 m2 www.n iddk. nih.g ov The MDRD study equat ion has not been valid ated in child karen <18 years of age; pregn ant women ; the elder ly >85 years of age; or in some racia l or ethni c subgr oups, such as Hispa nics. Outsi de the valid ated john eters , estim ated GFR is less accur ate, requi ring clini dasha judgm ent on a case- by-ca se basis . Clini dasha inter preta tion for other races and ages must be made by the clini lilliam. The MDRD study equat ion has not been valid ated for the evalu ation of serum creat inine relat ed to nutri allegra l statu s or medic ation usage . For perso ns <18 years of age, a pedia tric GFR calcu lator is avail able on the [facility] websi te: https ://ww w.kid indigo.o rg/pr ofess ional s/kdo qi/gf r_cal culat or Not Available [facility] (Lab) [address] [place], [address], 06/08/2023 22:06:00 06/08/20 23 06/08/2023 BASIC METAB OLIC PANEL calcium 9.6 mg/dL 8.4-10 .2 Not Available [facility] (Lab) [address] [place], [address], 06/08/2023 22:06:00 06/08/2006/08/2023 LIPID PANEL cholesterol 200 mg/dL 140-19 9 high NIH ADDY NSUS RECOM MENDA TION FOR [place] STERO L: ADULT CHILD LOW RISK: <200 <170 BORDE RLINE : <200- 239 ----- HIGH RISK: >240 >200 Not Available [facility] (Lab) [address] [place], [address], 06/08/2023 22:06:05 06/08/20 23 06/08/2023 LIPID PANEL triglyceride s 251 mg/dL 0-150 high NIH ADDY NSUS REPOR T RECOM MENDA TION FOR TRIGL YCERI MAICOL: ADULT CHILD LOW RISK: <150 ----- BODER LINE: 150-1 99 ----- HIGH RISK: >200 ----- Not Available [facility] (Lab) [address] [place], [address], 06/08/2023 22:06:05 06/08/20 23 06/08/2023 LIPID PANEL HDL cholesterol 37 mg/dL 40- low Not Available [facility] (Lab) [address] [place], [address], 06/08/2023 22:06:05 06/08/2006/08/2023 LIPID PANEL LDL cholesterol, calculated 113 mg/dL 0-130 NIH ADDY NSUS REPOR T RECOM MENDA TIONS FOR LDL: ADULT CHILD LOW RISK <130 <110 (OPTI MAL LDL) <100 ----- BORDE RLINE : 130-1 59 ----- HIGH RISK: >160 >130 A TRIGL YCERI DE RESUL T >400 INVAL IDATE S THE CALCU LATIO N FOR LDL FRACT IONAT ION - THE LDL RESUL T WILL NOT BE REPOR MIGUEL. Not Available [facility] (Lab) [address] [place], [address], 06/08/2023 22:06:05 06/08/20 23 06/08/2023 HEPAT IC/LI GABY PANEL alkaline phosphatase 52 U/L 38-126 Not Available [facility] (Lab) [address] [place], [address], 06/08/2023 22:06:11 06/08/20 23 06/08/2023 HEPAT IC/LI GABY PANEL alanine aminotransfe rase 26 U/L 0-50 Not Available [facility] (Lab) [address] [place], [address], 06/08/2023 22:06:11 06/08/20 23 06/08/2023 HEPAT IC/LI GABY PANEL aspartate aminotransfe rase 22 U/L 15-46 Not Available [facility] (Lab) [address] [place], [address], 06/08/2023 22:06:11 06/08/20 23 06/08/2023 HEPAT IC/LI GABY PANEL bilirubin, total 0.50 mg/dL 0.20-1 .30 Not Available [facility] (Lab) [address] [place], [address], 06/08/2023 22:06:11 06/08/2006/08/2023 HEPAT IC/LI GABY PANEL bilirubin, conjugated (direct) 0.00 mg/dL 0.00-0 .30 Not Available [facility] (Lab) [address] [place], [address], 06/08/2023 22:06:11 06/08/2006/08/2023 HEPAT IC/LI GABY PANEL biliurubin,u ncong. (indirect) 0.20 mg/dL 0.00-1 .1 Not Available [facility] (Lab) [address] [place], [address], 06/08/2023 22:06:11 06/08/20 23 06/08/2023 HEPAT IC/LI GABY PANEL total protein 7.0 g/dL 6.3-8. 2 Not Available [facility] (Lab) [address] [place], [address], 06/08/2023 22:06:11 06/08/20 23 06/08/2023 HEPAT IC/LI GABY PANEL albumin 4.2 g/dL 3.0-4. 4 Not Available [facility] (Lab) [address] [place], [address], 06/08/2023 22:06:11 06/08/20 23 06/08/2023 HEPAT IC/LI GABY PANEL globulin 2.8 g/dL 2.6-4. 2 Not Available [facility] (Lab) [address] [place], [address], 06/08/2023 22:06:11 06/08/20 23 06/08/2023 HEPAT IC/LI GABY PANEL A/G ratio 1.5 ratio 1.0-2. 0 Not Available [facility] (Lab) [address] [place], [address], 06/08/2023 22:06:11 12/07/19 24 12/07/2023 CBC/C OMPLE TE BLD COUNT W/DIF F white blood cells 6.1 x10'3 /uL 4.2-10 .8 Not Available [facility] (Lab) [address] [place], [address], 12/07/2023 20:41:45 12/07/19 24 12/07/2023 CBC/C OMPLE TE BLD COUNT W/DIF F red blood cells 4.74 x10'6 /uL 4.10-5 .80 Not Available [facility] (Lab) [address] [place], [address], 12/07/2023 20:41:45 12/07/19 24 12/07/2023 CBC/C OMPLE TE BLD COUNT W/DIF F hemoglobin 15.0 g/dL 13.2-1 7.0 Not Available [facility] (Lab) [address] [place], [address], 12/07/2023 20:41:45 12/07/19 24 12/07/2023 CBC/C OMPLE TE BLD COUNT W/DIF F hematocrit 44.8 % 39.3-5 0.0 Not Available [facility] (Lab) [address] [place], [address], 12/07/2023 20:41:45 12/07/19 24 12/07/2023 CBC/C OMPLE TE BLD COUNT W/DIF F mean red cell volume 94.5 fL 80.0-9 7.0 Not Available [facility] (Lab) [address] [place], [address], 12/07/2023 20:41:45 12/07/19 24 12/07/2023 CBC/C OMPLE TE BLD COUNT W/DIF F mean red cell hemoglobin 31.6 pg 27.0-3 3.0 Not Available [facility] (Lab) [address] [place], [address], 12/07/2023 20:41:45 12/07/19 24 12/07/2023 CBC/C OMPLE TE BLD COUNT W/DIF F mean RBC HGB concentratio n 33.5 g/dL 31.0-3 6.0 Not Available [facility] (Lab) [address] [place], [address], 12/07/2023 20:41:45 12/07/19 24 12/07/2023 CBC/C OMPLE TE BLD COUNT W/DIF F red cell distribution width 12.2 % 11.8-1 5.5 Not Available [facility] (Lab) [address] [place], [address], 12/07/2023 20:41:45 12/07/19 24 12/07/2023 CBC/C OMPLE TE BLD COUNT W/DIF F platelets 242 x10'3 /uL 150-40 0 Not Available [facility] (Lab) [address] [place], [address], 12/07/2023 20:41:45 12/07/19 24 12/07/2023 CBC/C OMPLE TE BLD COUNT W/DIF F mean platelet volume 10.3 fL 9.0-12 .4 Not Available [facility] (Lab) [address] [place], [address], 12/07/2023 20:41:45 12/07/19 24 12/07/2023 CBC/C OMPLE TE BLD COUNT W/DIF F neutrophils 56.8 % 39.0-7 2.0 Not Available [facility] (Lab) [address] [place], [address], 12/07/2023 20:41:45 12/07/19 24 12/07/2023 CBC/C OMPLE TE BLD COUNT W/DIF F lymphocytes 32.2 % 16.0-4 7.0 Not Available [facility] (Lab) [address] [place], [address], 12/07/2023 20:41:45 12/07/19 24 12/07/2023 CBC/C OMPLE TE BLD COUNT W/DIF F monocytes 7.7 % 5.0-12 .0 Not Available [facility] (Lab) [address] [place], [address], 12/07/2023 20:41:45 12/07/19 24 12/07/2023 CBC/C OMPLE TE BLD COUNT W/DIF F eosinophils 2.5 % 1.0-7. 0 Not Available [facility] (Lab) [address] [place], [address], 12/07/2023 20:41:45 12/07/19 24 12/07/2023 CBC/C OMPLE TE BLD COUNT W/DIF F basophils 0.3 % 0.0-2. 0 Not Available [facility] (Lab) [address] [place], [address], 12/07/2023 20:41:45 12/07/19 24 12/07/2023 CBC/C OMPLE TE BLD COUNT W/DIF F immature granulocytes 0.5 % 0.00-0 .50 Not Available [facility] (Lab) [address] [place], [address], 12/07/2023 20:41:45 12/07/19 24 12/07/2023 CBC/C OMPLE TE BLD COUNT W/DIF F neutrophils, absolute count 3.46 x10'3 /uL 1.5-8. 0 Not Available [facility] (Lab) [address] [place], [address], 12/07/2023 20:41:45 12/07/19 24 12/07/2023 CBC/C OMPLE TE BLD COUNT W/DIF F lymphocytes, absolute count 1.96 x10'3 /uL 1.07-3 .43 Not Available [facility] (Lab) [address] [place], [address], 12/07/2023 20:41:45 12/07/19 24 12/07/2023 CBC/C OMPLE TE BLD COUNT W/DIF F monocytes, absolute count 0.47 x10'3 /uL 0.29-0 .99 Not Available [facility] (Lab) [address] [place], [address], 12/07/2023 20:41:45 12/07/19 24 12/07/2023 CBC/C OMPLE TE BLD COUNT W/DIF F eosinophils, absolute count 0.15 x10'3 /uL 0.02-0 .53 Not Available [facility] (Lab) [address] [place], [address], 12/07/2023 20:41:45 12/07/19 24 12/07/2023 CBC/C OMPLE TE BLD COUNT W/DIF F basophils, absolute count 0.02 x10'3 /uL 0.01-0 .08 Not Available [facility] (Lab) [address] [place], [address], 12/07/2023 20:41:45 12/07/19 24 12/07/2023 CBC/C OMPLE TE BLD COUNT W/DIF F immature granulocytes ,absolute 0.03 x10'3 /uL 0.00-0 .05 Not Available [facility] (Lab) [address] [place], [address], 12/07/2023 20:41:45 12/07/19 24 12/07/2023 CBC/C OMPLE TE BLD COUNT W/DIF F nucleated red blood cells 0.0 % -0 Not Available [facility] (Lab) [address] [place], [address], 12/07/2023 20:41:45 12/07/19 24 12/07/2023 CBC/C OMPLE TE BLD COUNT W/DIF F NRBC# 0.00 x10'3 /uL Not Available [facility] (Lab) [address] [place], [address], 12/07/2023 20:41:45 12/07/19 24 12/07/2023 COMPR EHENS ALE METAB OLIC PANEL sodium 133 mmol/ L 137-14 5 low Not Available [facility] (Lab) [address] [place], [address], 12/07/2023 21:38:50 12/07/19 24 12/07/2023 COMPR EHENS ALE METAB OLIC PANEL potassium 4.6 mmol/ L 3.5-5. 1 Not Available [facility] (Lab) [address] [place], [address], 12/07/2023 21:38:50 12/07/19 24 12/07/2023 COMPR EHENS ALE METAB OLIC PANEL chloride 96 mmol/ L 98-107 low Not Available [facility] (Lab) [address] [place], [address], 12/07/2023 21:38:50 12/07/19 24 12/07/2023 COMPR EHENS ALE METAB OLIC PANEL carbon dioxide 28 mmol/ L 22-30 Not Available [facility] (Lab) [address] [place], [address], 12/07/2023 21:38:50 12/07/19 24 12/07/2023 COMPR EHENS ALE METAB OLIC PANEL anion gap 13.6 mmol/ L 14-22 low Not Available [facility] (Lab) [address] [place], [address], 12/07/2023 21:38:50 12/07/19 24 12/07/2023 COMPR EHENS ALE METAB OLIC PANEL glucose 157 mg/dL 70-99 high Not Available [facility] (Lab) [address] [place], [address], 12/07/2023 21:38:50 12/07/19 24 12/07/2023 COMPR EHENS ALE METAB OLIC PANEL BUN 14 mg/dL 8-19 Not Available [facility] (Lab) [address] [place], [address], 12/07/2023 21:38:50 12/07/19 24 12/07/2023 COMPR EHENS ALE METAB OLIC PANEL creatinine 0.86 mg/dL 0.66-1 .25 Not Available [facility] (Lab) [address] [place], [address], 12/07/2023 21:38:50 12/07/19 24 12/07/2023 COMPR EHENS ALE METAB OLIC PANEL GFR >60 Refer ence Range : Salcha ge GFR Healt hy Adult : >60 mL/mi n/1.7 3 m2 Chron ic Kidne y Disea se: 15-60 mL/mi n/1.7 3 m2 Kidne y Failu re: <15/m L/min /1.73 m2 www.n iddk. nih.g ov The MDRD study equat ion has not been valid ated in child karen <18 years of age; pregn ant women ; the elder ly >85 years of age; or in some racia l or ethni c subgr oups, such as Hispa nics. Outsi de the valid ated john eters , estim ated GFR is less accur ate, requi ring clini dasha judgm ent on a case- by-ca se basis . Clini dasha inter preta tion for other races and ages must be made by the clini lilliam. The MDRD study equat ion has not been valid ated for the evalu ation of serum creat inine relat ed to nutri allegra l statu s or medic ation usage . For perso ns <18 years of age, a pedia tric GFR calcu lator is avail able on the [facility] websi te: https ://ww w.kid indigo.o rg/pr ofess ional s/kdo qi/gf r_cal culat or Not Available [facility] (Lab) [address] [place], [address], 12/07/2023 21:38:50 12/07/19 24 12/07/2023 COMPR EHENS ALE METAB OLIC PANEL alkaline phosphatase 55 U/L 38-126 Not Available [facility] (Lab) [address] [place], [address], 12/07/2023 21:38:50 12/07/19 24 12/07/2023 COMPR EHENS ALE METAB OLIC PANEL alanine aminotransfe rase 38 U/L 0-50 Not Available [facility] (Lab) [address] [place], [address], 12/07/2023 21:38:50 12/07/19 24 12/07/2023 COMPR EHENS ALE METAB OLIC PANEL aspartate aminotransfe rase 31 U/L 15-46 Not Available [facility] (Lab) [address] [place], [address], 12/07/2023 21:38:50 12/07/19 24 12/07/2023 COMPR EHENS ALE METAB OLIC PANEL bilirubin, total 0.60 mg/dL 0.20-1 .30 Not Available [facility] (Lab) [address] [place], [address], 12/07/2023 21:38:50 12/07/19 24 12/07/2023 COMPR EHENS ALE METAB OLIC PANEL calcium 9.4 mg/dL 8.4-10 .2 Not Available [facility] (Lab) [address] [place], [address], 12/07/2023 21:38:50 12/07/19 24 12/07/2023 COMPR EHENS ALE METAB OLIC PANEL total protein 6.9 g/dL 6.3-8. 2 Not Available [facility] (Lab) [address] [place], [address], 12/07/2023 21:38:50 12/07/19 24 12/07/2023 COMPR EHENS ALE METAB OLIC PANEL albumin 4.6 g/dL 3.0-4. 4 high Not Available [facility] (Lab) [address] [place], [address], 12/07/2023 21:38:50 12/07/19 24 12/07/2023 COMPR EHENS ALE METAB OLIC PANEL globulin 2.3 g/dL 2.6-4. 2 low Not Available [facility] (Lab) [address] [place], [address], 12/07/2023 21:38:50 12/07/19 24 12/07/2023 COMPR EHENS ALE METAB OLIC PANEL A/G ratio 2.0 ratio 1.0-2. 0 Not Available [facility] (Lab) [address] [place], [address], 12/07/2023 21:38:50 12/07/19 24 12/07/2023 MAGNE SIUM magnesium 2.0 mg/dL 1.6-2. 3 Not Available [facility] (Lab) [address] [place], [address], 12/07/2023 21:38:54 12/07/19 24 12/07/2023 HEMOG LOBIN A1C HA1C 6.0 % 4.0-6. 0 Diabe german Scree bernard Crite francisco: <5.7% Consi stent with absen ce of diabe german 5.7-6 .4% Consi stent with incre ased risk for diabe german (pred iabet es) >OR=6 .5% Consi stent with diabe german REFER ENCE: Diabe german Care 2016, 39(Rene ppl.1 ):s13 -s22 Not Available [facility] (Lab) [address] [place], [address], 12/07/2023 21:39:35 12/07/19 24 12/07/2023 TSH thyroid-stim ulating hormone 0.571 uIU/m L 0.465- 4.680 Not Available [facility] (Lab) [address] [place], [address], 12/07/2023 21:47:24 12/07/19 24 elect willis [email or web address] am No observ ation record ed. [email or web address] [facility] [address], [place], [address], 12/07/2023 12:02:53 Result Notes None recorded. Problems Name Problem SNOMED Code Status Onset Date Resolution Date Notes Provider Name and Address Organization Details Recorded Time Seizure disorder 099664187 Active 2019 Not Available [facility] 3 22:39:34 Large prostate 849437212 Active 2019 Not Available [facility] 3 22:39:34 Essential hypertensi on 76049417 Active 2019 Not Available [facility] 3 22:39:35
--- OUTSIDE RECORDS SUMMARY | 2024-12-21 14:23 | XMS_ITS | Encounter Summary ---
Author Organization [facility] Healthcare Address [address] [place] [address] Care Team Providers Care Sound Art Instructor Name Role Phone Cheyenne Burk Unavailable Jermaine Cormier MD Unavailable [phone] Zeke Steve NP Unavailable [phone] Eladio Villasenor MD Unavailable [phone] Sumit Butt MD Unavailable [phone] Felicity Parmar MD Primary Care Provide r Encounter Details Date Type Department Care Team (Late st Contact Info) Description 11/18/2024 Results Follow-Up [facility] at [address] [place] [address] Lalita Lopez, CLAIRE [address] [place] [address] Social History Tobacco Use Types Packs/Day Years Used Date Smoking Tobacco: Never Passive Smoke Exposure: Never Smokeless Tobacco: Never OASIS D0700: Social Isolation Answer Da te [...] on file 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 NO SIGNS OF PNEUMONIA. Continue current therapy and f/u with PCP documented in this encounter Plan of Treatment Not on file documented as of this encounter Visit Diagnoses Not on filedocumented in this encounter Care Teams Sound Art Instructor Relationship Specialty Start Date End Date Felicity Parmar MD [address] [facility] [address] [place] [address] PCP - General Family Medicine 11/17/24 Cheyenne Burk PA [address] [facility] [address] [place] [address] Orthopedic Surgery 04/19/23 Jermaine Cormier MD [address] [place] [address] [address] [facility] [address] [place] [address] Surgeon Orthopedic Surgery 04/21/23 Zeke Steve NP [address] [place] [address] [address] [place] [address] Nurse Practitioner Nurse Practitioner 04/22/23 Eladio Villasenor MD [address] [place] [address] [address] [place] [address] Consulting Physician Neurology 03/23/24 Sumit Butt MD [address] [facility] [address] [place] [address] Consulting Physician Urology 03/23/24 documented as of this encounter
--- OUTSIDE RECORDS SUMMARY | 2024-12-21 14:24 | XMS_ITS | Clinical Summary ---
Author Organization [facility] Address [address] [place] [address] Phone Care Team Providers Care Railroad Signal Operator Name Role Phone Misha Chacon MD Primary Care Provider Social History Tobacco Use Types Packs/Day Years Used Date Smoking Tobacco: Never Assessed Sex and Gender Information Value Date Recorded Sex Assigned at Not on file Legal Sex Male 12:17 AM CDT Gender Identity Not on file Sexual Orientation Not on file Plan of Treatment Health Maintenance Due Date Last Done Comments Hepatitis C Virus (HCV) Screening 1955 Colonoscopy 01/27/2000 Colorectal Cancer Screening 01/27/2000 Cologuard 2005 Immunochemical Fecal Occult Blood 2005 Pneumococcal Immunization (5 0+ years) (1 of 1 - PCV) 2005 Zoster Immunization (1 of 2) 2005 Influenza Immunization (#1) 04/09/202405/09, 06/08/2016 SARS-COV-2 Immunization ( season) 2024 11/30/2020, 11/09/2020 Respiratory Syncytial Virus (RSV) Immunization (Adult) (1 - 1-dose 75+ series) 2030 DTaP/Tdap/Td Immunization Discontinued 10/02/2015 TdaP Immunization Completed 10/02/2015 PSA Discussion Completed 05/11/2018 Hepatitis B Immunization Aged Out No longer eligible based on patient's age to complete this topic Meningococcal Immunization (ACWY) Aged Out No longer eligible based on patient's age to complete this topic Rotavirus Immunization Aged Out No lo nger eligible based on patient's age to complete this topic Procedures Procedure Name Priority Date/Time Associated Diagnosis Comments PSA SCREEN Routine 05/11/2018 11:00 AM CDT Benign prostatic hyperplasia with lower urinary tract symptoms, symptom details unspecified from Last 3 Months or Most Recently Relevant to Health Maintenance Results * PSA SCREEN (05/11/2018 11:00 AM CDT) PSA SCREEN, TOTAL 0.10 <=4.00 ng/mL 05/11/2018 1:10 PM CDT [facility] Blood specimen (specimen) Venipuncture / Unknown 05/11/2018 11:00 AM CDT 05/11/2018 12:15 PM CDT Narrative [facility] - 05/11/2018 1:10 PM CDT PSA NOTE: The PSA value should be used in conjunction with information available from clinical evaluation and other diagnostic procedures. Reinier Puga MD CHEMISTRY ORDERABLES Final Result [facility] [address] [place] [address] from Last 3 Months or Most Recently Relevant to Health Maintenance Insurance [facility] Care Teams Railroad Signal Operator Relationship Specialty Start Date End Date Misha Chacon MD [address] [address] PCP - General Family Medicine 05/11/18
== END 2024-12-21 14:17 | disposition home or self-care (01) ==
PROVIDERS: Visit Provider Urology
DX: N41.9 Inflammatory disease of prostate, unspecified (principal); K76.0 Fatty (change of) liver, not elsewhere classified
CPT/HCPCS: 74176